=== PATIENT | female | born 1935 | race Two or more races ===

== ENCOUNTER 2016-12-31 11:51 | Inpatient (IN) | payer MEDICARE, BC ==
[2016-12-31] MEDS ORDERED: FUROSEMIDE 10 MG/ML 2 ML VIAL IV STA (12:30)
[2016-12-31] MEDS ORDERED: LABETALOL 5 MG/ML VIAL MDV IVP STA (13:01)
[2016-12-31 13:02] LABS: Basophils % (A) 0 %; CH 32.2; CHCM 34.8; Eosinophils % (A) 0 %; HDW 2.67; HGB 13.7 gm/dL (11.4-16.0); Luc # (Auto) 0.08; Luc % (Auto) 1; Lymphocytes # (A) 0.9 k/uL (1.0-4.8); Lymphocytes % (A) 8 %; MCH 31.1 pg (25.0-35.0); MCHC 33.5 g/dL (31.0-37.0); MCV 92.9 fL (80.0-100.0); Mean Platelet Volume 7.2; Monocytes # (A) 0.4 k/uL (0-1.0); Monocytes % (A) 3 %; Neutrophils # (A) 9.3 k/uL (1.3-7.7); Neutrophils % (A) 87 %; RBC 4.41 m/uL (3.80-5.40); RDW 13.7 % (11.5-15.5); WBC 10.7 k/uL (3.8-10.6); WBC (Perox) 10.51
[2016-12-31 13:13] LABS: Partial Thromboplastin Time 22.6 sec (22.0-30.0)
[2016-12-31 13:15] LABS: Calcium 9.6 mg/dL (8.4-10.2); Magnesium 1.9 mg/dL (1.6-2.3); Potassium 4.5 mmol/L (3.5-5.1); Total Bilirubin 0.8 mg/dL (0.2-1.3); Total Protein 6.8 g/dL (6.3-8.2)
[2016-12-31 13:23] LABS: Creatine Kinase 34 U/L (30-135)
--- NOTE | 2016-12-31 13:33 | XR ---
EXAMINATION TYPE: XR chest 2V DATE OF EXAM: 12/31/2016 COMPARISON: NONE HISTORY: Shortness of breath TECHNIQUE: Frontal and lateral views of the chest are obtained. FINDINGS: Scattered senescent parenchymal changes noted. Hyperinflation compatible with COPD. Increased density right infrahilar region may reflect developing infiltrate or atelectasis. Clinical correlation and follow-up is advised. Heart size is stable. Mediastinal structures are stable and grossly unremarkable. No evidence for hilar prominence. Degenerative changes dorsal spine. IMPRESSION: 1. Increased density right infrahilar region may reflect developing infiltrate or atelectasis. Clinic al correlation and follow-up is advised.
[2016-12-31 13:36] LABS: Creatine Kinase MB 0.3 ng/mL (0.0-2.4); Troponin I <0.012 ng/mL (0.000-0.034)
[2016-12-31] MEDS ORDERED: hydrALAZINE HCL 20 MG/ML 1 ML VIAL IVP STA ×2 (15:19)
--- NOTE | 2016-12-31 15:34 | ED ---
Arrhythmia/Palpitations HPI - General Chief Complaint: Arrhythmia/Palpitations Stated Complaint: ABdominal pain Time Seen by Provider: 12/31/16 12:18 Source: patient Mode of arrival: wheelchair Limitations: no limitations - History of Present Illness Initial Comments: This 81-year-old white female presents with her sister with a complaint of some palpitations. She relates that it woke her up at approximately 3 AM this morning. She states that it lasted approximately 15-20 minutes. She denies any actual chest pain or shortness of breath. She also has a history of high blood pressure but believe she went off of her high blood pressure medicines approximately 6 months ago as recommended by her physician. She currently does not take any medications for her blood pressure. She denies any cough or difficulty in breathing. She denies any leg pain or swelling. She denies any known previous cardiac conditions. She apparently had some type of cardiac testing her procedure but she cannot remember the exact test or procedure. Overall, it seems as though her medical history is difficult for her to remember. They relate that her niece was going to send something to our hospital in regard to her past medical history but I have not seen this information as of yet. - Related Data Home Medications Medication Instructions Recorded Confirmed Ascorbic Acid [Vitamin C] 1,000 mg PO DAILY 12/31/16 12/31/16 Aspirin EC [Ecotrin Low Dose] 81 mg PO DAILY 12/31/16 12/31/16 Cholecalciferol [Vitamin D3] 400 unit PO DAILY 12/31/16 12/31/16 [place]-3 Fatty Acids/Fish Oil [Fish 1 cap PO DAILY 12/31/16 12/31/16 Oil 1,000 mg Softgel] Allergies Allergy/AdvReac Type Severity Reaction Status Date / Time No Known Allergies Allergy Verified 12/31/16 12:44 Review of Systems ROS Statement: Those systems with pertinent positive or pertinent negative responses have been documented in the HPI. ROS Other: All systems not noted in ROS Statement are negative. Past Medical History Additional Past Medical History / Comment(s): cardiac problem History of Any Multi-Drug Resistant Organisms: None Reported Past Surgical History: Appendectomy Additional Past Surgical History / Comment(s): masectomy right, Past Psychological History: No Psychological Hx Reported Smoking Status: Former smoker Past Alcohol Use History: Rare Past Drug Use History: None Reported General Exam - General Exam Comments Initial Comments: GENERAL: The patient is well nourished and well hydrated. VITAL SIGNS: Heart rate, blood pressure, respiratory rate reviewed as recorded in nurse's notes. EYES: Pupils are round and reactive. Extraocular movements are intact. No conjunctival / lid redness or swelling. ENT: No external evidence of injury, swelling, or ecchymosis. Airway is patent. Throat is clear. NECK: Nontender. No swelling or evidence of injury. No subcutaneous emphysema. Trachea is midline. No thyroid mass. HEART: Regular rate and rhythm. Good peripheral pulses. LUNGS/CHEST: Breath sounds clear and equal bilaterally. No rales, rhonchi, or wheezes. No ecchymosis, subcutaneous emphysema, or tenderness. ABDOMEN: Abdomen soft without tenderness. No palpable masses or organomegaly. No peritoneal signs. No abdominal wall swelling or ecchymosis. EXTREMITIES: No extremity tenderness. Normal muscle tone and function. No thoracolumbar tenderness. NEUROLOGIC: Sensation is grossly intact. Cranial nerve exam reveals face is symmetrical, tongue is midline, speech is clear. SKIN: No abrasions or ecchymosis is noted. No induration or masses noted. PSYCHIATRIC: Alert and oriented. Appropriate behavior and judgment. Limitations: no limitations Course Vital Signs 12/31/16 12/31/16 12/31/16 12:00 13:13 14:35 Temperature 97.4 F L Pulse Rate 85 71 75 Respiratory 18 16 16 Rate Blood Pressure 178/79 236/96 215/90 O2 Sat by Pulse 98 100 100 Oximetry 12/31/16 15:30 Temperature Pulse Rate 11 L Respiratory 16 Rate Blood Pressure 169/77 O2 Sat by Pulse 100 Oximetry Medical Decision Making - Medical Decision Making The patient was seen and examined. All diagnostics were reviewed. The EKG shows a normal sinus rhythm at a rate of 81 with a right bundle-branch block. There is some moderate artifact noted. There is some associated ST-T wave changes in relation to the bundle branch block. The patient also has a left anterior fascicular block. The DE interval is 202, QRS duration is 138, and the QTc interval is 476. She is watched on a heart monitor and her blood pressure was severely elevated. She receives some labetalol intravenously and her blood pressure eventually increased to approximately 233/94. She receives some hydralazine and her blood pressure still elevated at 209/146. The palpitations seemed to have resolved at this point in time. The laboratory analysis is essentially within normal limits but the chest x-ray shows the possibility of a pneumonia versus atelectasis. Overall, it is felt as though she would benefit from admission to the hospital for treatment of the accelerated hypertension and the pneumonia. Case was discussed with Dr. Vargas and he is agreeable to admission. - Lab Data Result diagrams: 12/31/16 12:15 12/31/16 12:15 Lab Results 12/31/16 12/31/16 12/31/16 Range/Units 12:15 12:15 12:15 WBC 10.7 H (3.8-10.6) k/uL RBC 4.41 (3.80-5.40) m/uL Hgb 13.7 (11.4-16.0) gm/dL Hct 41.0 (34.0-46.0) % MCV 92.9 (80.0-100.0) fL MCH 31.1 (25.0-35.0) pg MCHC 33.5 (31.0-37.0) g/dL RDW 13.7 (11.5-15.5) % Plt Count 200 (150-450) k/uL Neutrophils % 87 % Lymphocytes % 8 % Monocytes % 3 % Eosinophils % 0 % Basophils % 0 % Neutrophils # 9.3 H (1.3-7.7) k/uL Lymphocytes # 0.9 L (1.0-4.8) k/uL Monocytes # 0.4 (0-1.0) k/uL Eosinophils # 0.0 (0-0.7) k/uL Basophils # 0.0 (0-0.2) k/uL PT (9.0-12.0) sec INR (<1.2) APTT (22.0-30.0) sec Sodium 140 (137-145) mmol/L Potassium 4.5 (3.5-5.1) mmol/L Chloride 108 H (98-107) mmol/L Carbon Dioxide 20 L (22-30) mmol/L Anion Gap 12 mmol/L BUN 19 H (7-17) mg/dL Creatinine 1.09 H (0.52-1.04) mg/dL Est GFR (MDRD) Af Amer 58 (>60 ml/min/1.73 sqM) Est GFR (MDRD) Non-Af 48 (>60 ml/min/1.73 sqM) Glucose 108 H (74-99) mg/dL Calcium 9.6 (8.4-10.2) mg/dL Magnesium 1.9 (1.6-2.3) mg/dL Total Bilirubin 0.8 (0.2-1.3) mg/dL AST 25 (14-36) U/L ALT 28 (9-52) U/L Alkaline Phosphatase 91 (38-126) U/L Total Creatine Kinase 34 (30-135) U/L CK-MB (CK-2) 0.3 (0.0-2.4) ng/mL CK-MB (CK-2) Rel Index 0.9 Troponin I <0.012 (0.000-0.034) ng/mL Total Protein 6.8 (6.3-8.2) g/dL Albumin 4.0 (3.5-5.0) g/dL Amylase 46 (30-110) U/L Lipase 57 (23-300) U/L TSH 6.510 H (0.465-4.680) mIU/L 12/31/16 Range/Units 12:15 WBC (3.8-10.6) k/uL RBC (3.80-5.40) m/uL Hgb (11.4-16.0) gm/dL Hct (34.0-46.0) % MCV (80.0-100.0) fL MCH (25.0-35.0) pg MCHC (31.0-37.0) g/dL RDW (11.5-15.5) % Plt Count (150-450) k/uL Neutrophils % % Lymphocytes % % Monocytes % % Eosinophils % % Basophils % % Neutrophils # (1.3-7.7) k/uL Lymphocytes # (1.0-4.8) k/uL Monocytes # (0-1.0) k/uL Eosinophils # (0-0.7) k/uL Basophils # (0-0.2) k/uL PT 10.0 (9.0-12.0) sec INR 1.0 (<1.2) APTT 22.6 (22.0-30.0) sec Sodium (137-145) mmol/L Potassium (3.5-5.1) mmol/L Chloride (98-107) mmol/L Carbon Dioxide (22-30) mmol/L Anion Gap mmol/L BUN (7-17) mg/dL Creatinine (0.52-1.04) mg/dL Est GFR (MDRD) Af Amer (>60 ml/min/1.73 sqM) Est GFR (MDRD) Non-Af (>60 ml/min/1.73 sqM) Glucose (74-99) mg/dL Calcium (8.4-10.2) mg/dL Magnesium (1.6-2.3) mg/dL Total Bilirubin (0.2-1.3) mg/dL AST (14-36) U/L ALT (9-52) U/L Alkaline Phosphatase (38-126) U/L Total Creatine Kinase (30-135) U/L CK-MB (CK-2) (0.0-2.4) ng/mL CK-MB (CK-2) Rel Index Troponin I (0.000-0.034) ng/mL Total Protein (6.3-8.2) g/dL Albumin (3.5-5.0) g/dL Amylase (30-110) U/L Lipase (23-300) U/L TSH (0.465-4.680) mIU/L Disposition Clinical Impression: Accelerated hypertension, Palpitations, Leukocytosis, Renal insufficiency, Pneumonia Disposition: ADMITTED IP TO THIS [facility] Condition: Fair Time of Disposition: 15:34 Decision Date: 12/31/16 Decision Time: 15:34
[2016-12-31] MEDS ORDERED: LEVOFLOXACIN 750MG-D5W PMX 750 MG in DEXTROSE/WATER 1 150ML.BAG IVPB STA (16:02)
[2016-12-31] MEDS ORDERED: ONDANSETRON 4 MG/2 ML VIAL IVP PRN (16:09)
[2016-12-31] MEDS ORDERED: NALOXONE 0.4 MG/ML 1 ML VIAL IV PRN (16:09)
[2016-12-31] MEDS ORDERED: hydrALAZINE HCL 20 MG/ML 1 ML VIAL IVP PRN (16:17)
[2016-12-31 19:31] LABS: Creatine Kinase 28 U/L (30-135)
[2016-12-31 19:44] LABS: Creatine Kinase MB 0.3 ng/mL (0.0-2.4); Troponin I <0.012 ng/mL (0.000-0.034)
[2017-01-01 00:17] LABS: Creatine Kinase 35 U/L (30-135)
[2017-01-01 00:30] LABS: Creatine Kinase MB 0.5 ng/mL (0.0-2.4); Troponin I <0.012 ng/mL (0.000-0.034)
[2017-01-01] MEDS: METOPROLOL TARTRATE 25 MG TAB PO SCH ×2 (07:23→08:10)
[2017-01-01] MEDS: CHOLECALCIFEROL 400 UNIT TAB PO SCH (08:10)
[2017-01-01] MEDS: ASPIRIN 81 MG CHEW PO SCH (08:10)
[2017-01-01] MEDS: ENOXAPARIN 40 MG/0.4 ML SYRINGE SQ SCH (08:10)
[2017-01-01] MEDS: ASCORBIC ACID 500 MG TAB PO SCH (08:10)
[2017-01-01] MEDS ORDERED: PANTOPRAZOLE 40 MG/10 ML VIAL IV SCH (09:00)
[2017-01-01] MEDS ORDERED: NON-FORMULARY DRUG (Omega-3 Fatty Acids/Fish Oil [Fish Oil 1,000 Mg Softgel] 1 CAP) PO SCH (09:00)
--- NOTE | 2017-01-01 09:50 | P.HPIM ---
History of Present Illness H&P Date: 01/01/17 Chief Complaint: Palpitation Ann Ross is an 81-year-old female patient of Dr. Lorraine Felipe who presented to [facility] with a chief complaint of palpitation that woke her up at night and lasted for about 20 minutes, she was evaluated in the emergency room and had evidence of hypertensive emergency with elevated blood pressure was a systolic above 200, she states that she used to take blood pressure medication but she stopped about 6 months ago she states that her primary care physician told her to stop taking blood pressure medication. She was evaluated in the emergency room she also had evidence of infiltrate on chest x-ray suggestive of pneumonia. She had evidence of hypothyroidism with elevated TSH she was admitted to telemetry floor for further evaluation and treatment she was started on IV antibiotic Levaquin. She was started on metoprolol in the emergency room. Past Medical History Past Medical History: Hypertension Additional Past Medical History / Comment(s): sarcodosis; former smoker History of Any Multi-Drug Resistant Organisms: None Reported Past Surgical History: Appendectomy, Heart Catheterization With Stent Additional Past Surgical History / Comment(s): masectomy right in ; heart cath with stent done in Dec and Mar Past Anesthesia/Blood Transfusion Reactions: No Reported Reaction Date of Last Stent Placement:: 2008 Past Psychological History: No Psychological Hx Reported Smoking Status: Former smoker Past Alcohol Use History: Rare Past Drug Use History: None Reported Medications and Allergies Home Medications Medication Instructions Recorded Confirmed Type Ascorbic Acid [Vitamin C] 1,000 mg PO DAILY 12/31/16 12/31/16 History Aspirin EC [Ecotrin Low Dose] 81 mg PO DAILY 12/31/16 12/31/16 History Cholecalciferol [Vitamin D3] 400 unit PO DAILY 12/31/16 12/31/16 History [place]-3 Fatty Acids/Fish Oil [Fish 1 cap PO DAILY 12/31/16 12/31/16 History Oil 1,000 mg Softgel] Allergies Allergy/AdvReac Type Severity Reaction Status Date / Time No Known Allergies Allergy Verified 12/31/16 12:44 Physical Exam Vitals: Vital Signs Temp Pulse Pulse Resp BP BP Pulse Ox 01/01/17 08:00 99.1 F 69 16 155/73 96 01/01/17 04:00 99.4 F 69 18 166/69 95 01/01/17 00:00 99.4 F 79 18 130/68 98 12/31/16 20:00 98.3 F 79 18 158/72 90 L 12/31/16 17:26 98 F 88 18 141/78 98 12/31/16 16:19 159/77 12/31/16 15:30 11 L 16 169/77 100 12/31/16 14:35 75 16 215/90 100 12/31/16 13:13 71 16 236/96 100 12/31/16 12:00 97.4 F L 85 18 178/79 98 Intake and Output 12/31/16 01/01/17 01/01/17 22:59 06:59 14:59 Intake Total 180 240 Balance 180 240 Intake: Oral 180 240 Other: # Voids 1 Weight 74.843 kg 81.2 kg In general patient is alert and oriented 3 in no apparent distress HEENT head normocephalic and atraumatic Neck is supple no JVD no goiter no lymphadenopathy Chest exam reveals a scattered crackles in both bases no wheezing Cardiac exam reveals regular heart sounds S1 and S2 no gallops no murmurs Abdomen is soft nontender no organomegaly with normal bowel sounds Extremity exam reveals no edema no cyanosis or clubbing Results CBC & Chem 7: 12/31/16 12:15 12/31/16 12:15 Labs: Abnormal Lab Results - Last 24 Hours (Table) 12/31/16 12/31/16 12/31/16 Range/Units 12:15 12:15 18:52 WBC 10.7 H (3.8-10.6) k/uL Neutrophils # 9.3 H (1.3-7.7) k/uL Lymphocytes # 0.9 L (1.0-4.8) k/uL Chloride 108 H (98-107) mmol/L Carbon Dioxide 20 L (22-30) mmol/L BUN 19 H (7-17) mg/dL Creatinine 1.09 H (0.52-1.04) mg/dL Glucose 108 H (74-99) mg/dL Total Creatine Kinase 28 L (30-135) U/L TSH 6.510 H (0.465-4.680) mIU/L Thrombosis Risk Factor Assmnt - Choose All That Apply Each Risk Factor Represents 3 Points: Age 75 years or older Thrombosis Risk Factor Assessment Total Risk Factor Score: 3 Thrombosis Risk Factor Assessment Level: Moderate Risk Assessment and Plan Plan: #1 episode of palpitation, patient was started on metoprolol in the emergency room will monitor on telemetry to rule out any cardiac arrhythmia, cardiology consultation was requested in the emergency room serial EKG and cardiac enzymes were ordered #2 hypertensive emergency, blood pressure in the emergency room 236/96 she was started on oral metoprolol she was also started on IV hydralazine will adjust blood pressure medication during this admission. #3 right infrahilar infiltrate, patient was started on IV Levaquin in the emergency room will recheck chest x-ray in a.m. #4 hypothyroidism TSH on presentation 6.51 Will add Synthroid 25 g once daily #5 for DVT prophylaxis patient was started on Lovenox 40 mg subcu once daily for GI prophylaxis patient was started on Pepcid Will follow during this admission for medical management continue was current antibiotic and current medication at this time will add Synthroid 25 g daily Will add lisinopril 5 mg daily and monitor progress.
[2017-01-01] MEDS ORDERED: LISINOPRIL 5 MG TAB PO SCH (10:00)
[2017-01-01] MEDS ORDERED: DOPamine DRIP 800 MG in DEXTROSE/WATER 1 500ML.BAG IV SCH (11:26)
[2017-01-01] MEDS: amLODIPine 5 MG TAB PO SCH (12:13)
--- NOTE | 2017-01-01 14:10 | P.CRDCN ---
History of Present Illness History of present illness: Elderly female who follows with Dr. Bowers admitted with symptoms of palpitations that woke her up at 3 AM in the morning and lasted for about 15-20 minutes. Denies chest discomfort denies shortness of breath. She has also been noted to have fever and white count is being treated with IV antibiotics and possibly has pneumonitis Review of systems: No fever chills or rigors, no cough, phlegm or expectoration , no nausea, vomiting or diarrhea, no hematuria, dysuria, no musculoskeletal complaints, no strokes or seizures, no skin lesions. Past history of hypertension she states she's been taking her medications but is unlikely that she has Medication list was reviewed ALLERGY list was reviewed This morning at about 10:30 in while she is lying in bed she had long episodes of paroxysmal AV block. Labs are reviewed electrolytes normal potassium and normal TSH 6.5, high cardiac enzymes normal Impression Paroxysmal AV block no reversible causes Hypertension Hypothyroidism Being treated for pneumonitis Stage III chronic kidney disease GFR 58, normal electrolytes Plan Permanent pacemaker implantation after her infection is treated, for prevention of syncope and injury on account of sudden severe bradycardia with long pauses secondary to paroxysmal AV block Amlodipine 5 mg daily for hypertension Past Medical History Past Medical History: Hypertension Additional Past Medical History / Comment(s): sarcodosis; former smoker History of Any Multi-Drug Resistant Organisms: None Reported Past Surgical History: Appendectomy, Heart Catheterization With Stent Additional Past Surgical History / Comment(s): masectomy right in ; heart cath with stent done in Dec and Mar Past Anesthesia/Blood Transfusion Reactions: No Reported Reaction Date of Last Stent Placement:: 2008 Past Psychological History: No Psychological Hx Reported Smoking Status: Former smoker Past Alcohol Use History: Rare Past Drug Use History: None Reported Medications and Allergies Home Medications Medication Instructions Recorded Confirmed Type Ascorbic Acid [Vitamin C] 1,000 mg PO DAILY 12/31/16 12/31/16 History Aspirin EC [Ecotrin Low Dose] 81 mg PO DAILY 12/31/16 12/31/16 History Cholecalciferol [Vitamin D3] 400 unit PO DAILY 12/31/16 12/31/16 History [place]-3 Fatty Acids/Fish Oil [Fish 1 cap PO DAILY 12/31/16 12/31/16 History Oil 1,000 mg Softgel] Allergies Allergy/AdvReac Type Severity Reaction Status Date / Time No Known Allergies Allergy Verified 12/31/16 12:44 Physical Exam Vitals: Vital Signs Temp Pulse Pulse Resp BP BP Pulse Ox 01/01/17 10:52 99.2 F 65 16 167/83 96 01/01/17 08:00 99.1 F 69 16 155/73 96 01/01/17 04:00 99.4 F 69 18 166/69 95 01/01/17 00:00 99.4 F 79 18 130/68 98 12/31/16 20:00 98.3 F 79 18 158/72 90 L 12/31/16 17:26 98 F 88 18 141/78 98 12/31/16 16:19 159/77 12/31/16 15:30 11 L 16 169/77 100 12/31/16 14:35 75 16 215/90 100 Intake and Output 12/31/16 01/01/17 01/01/17 22:59 06:59 14:59 Intake Total 180 240 Balance 180 240 Intake: Oral 180 240 Other: # Voids 1 Weight 74.843 kg 81.2 kg Results 12/31/16 12:15 12/31/16 12:15 Cardiac Enzymes 12/31/16 12/31/16 Range/Units 18:52 23:43 CK-MB (CK-2) 0.3 0.5 (0.0-2.4) ng/mL Troponin I <0.012 <0.012 (0.000-0.034) ng/mL Current Medications Generic Name Dose Route Start Last Admin Trade Name Freq PRN Reason Stop Dose Admin Acetaminophen 650 mg 12/31/16 16:09 Tylenol Tab PO Q6HR PRN Mild Pain or Fever > 100.5 Amlodipine Besylate 5 mg 01/01/17 11:30 01/01/17 12:13 Norvasc PO 5 mg DAILY [facility] Administration Ascorbic Acid 1,000 mg 01/01/17 12:00 01/01/17 08:10 Vitamin C PO 1,000 mg 1200 [facility] Administration Aspirin 81 mg 01/01/17 09:00 01/01/17 08:10 Aspirin PO 81 mg DAILY [facility] Administration Cholecalciferol 400 unit 01/01/17 12:00 01/01/17 08:10 Vitamin D3 PO 400 unit 1200 [facility] Administration Enoxaparin Sodium 40 mg 01/01/17 09:00 01/01/17 08:10 Lovenox SQ 40 mg DAILY [facility] Administration Hydralazine HCl 10 mg 12/31/16 16:17 Apresoline IVP Q4H PRN Hypertension Levofloxacin 750 mg/ IV 150 mls @ 100 mls/hr 01/02/17 17:00 Solution IVPB Q48H [facility] Dopamine HCl/Dextrose 800 mg/ 500 mls @ 6.09 mls/hr 01/01/17 11:26 01/01/17 12:04 IV Solution IV 01/01/17 19:00 2 mcg/kg/min .Q24H [facility]INA 6.09 mls/hr Protocol Administration 2 MCG/KG/MIN Levothyroxine Sodium 25 mcg 01/02/17 06:30 Synthroid PO DAILY@0630 [facility] Naloxone HCl 0.2 mg 12/31/16 16:09 Narcan IV Q2M PRN Opioid Reversal Ondansetron HCl 4 mg 12/31/16 16:09 Zofran IVP Q8HR PRN Nausea And Vomiting Pantoprazole Sodium 40 mg 01/02/17 07:30 Protonix PO AC-[id number] [facility] Intake and Output 12/31/16 01/01/17 01/01/17 22:59 06:59 14:59 Intake Total 180 240 Balance 180 240 Intake: Oral 180 240 Other: # Voids 1 Weight 74.843 kg 81.2 kg 12/31/16 12:15 12/31/16 12:15
[2017-01-02 06:22] LABS: Basophils # (A) 0.1 k/uL (0-0.2); Basophils % (A) 1 %; CHCM 34.8; Eosinophils % (A) 0 %; HCT 36.4 % (34.0-46.0); HDW 2.65; HGB 12.1 gm/dL (11.4-16.0); Luc % (Auto) 1; Lymphocytes % (A) 10 %; MCH 30.6 pg (25.0-35.0); MCHC 33.1 g/dL (31.0-37.0); MCV 92.4 fL (80.0-100.0); Mean Platelet Volume 7.1; Monocytes # (A) 0.7 k/uL (0-1.0); Monocytes % (A) 6 %; Neutrophils # (A) 8.6 k/uL (1.3-7.7); Neutrophils % (A) 82 %; RBC 3.94 m/uL (3.80-5.40); RDW 13.9 % (11.5-15.5); WBC 10.4 k/uL (3.8-10.6)
[2017-01-02 06:36] LABS: Potassium 4.1 mmol/L (3.5-5.1); Total Bilirubin 0.8 mg/dL (0.2-1.3); Total Protein 5.7 g/dL (6.3-8.2)
[2017-01-02] MEDS: LEVOTHYROXINE 25 MCG TAB PO SCH (07:01)
[2017-01-02] MEDS: PANTOPRAZOLE 40 MG TABLET PO SCH (07:01)
--- NOTE | 2017-01-02 07:20 | XR ---
EXAMINATION TYPE: XR chest 2V DATE OF EXAM: 01/02/2017 COMPARISON: 12/31/2016 HISTORY: Shortness of breath TECHNIQUE: Frontal and lateral views of the chest are obtained. FINDINGS: Scattered senescent parenchymal changes noted. Hyperinflation compatible with COPD. Stable right lower lobe infiltrate. Heart size is stable. Mediastinal structures are stable and grossly unremarkable. No evidence for hilar prominence. Degenerative changes dorsal spine. IMPRESSION: 1. Stable right lower lobe infiltrate.
[2017-01-02] MEDS: ASPIRIN 81 MG CHEW PO SCH (08:29)
[2017-01-02] MEDS: amLODIPine 5 MG TAB PO SCH (08:29)
[2017-01-02] MEDS: ENOXAPARIN 40 MG/0.4 ML SYRINGE SQ SCH (08:29)
--- NOTE | 2017-01-02 12:17 | P.PN ---
Progress Note - Text Impression Paroxysmal AV block Risk of syncope and significant injury Discussed with the patient She asked very appropriate and relevant questions regarding the pacemaker Detailed discussion with her power of rehabilitation therapy technician in [place], Cherry I explained the indication for permanent pacing benefits risks and does and don' ts and postop care. She was concerned about follow-up care mainly because the patient has not been coming back for her follow-up visits. I told her that I will arrange for the trimming caser to look into this so that she has tried as needed after one week and then after 3 months for pacemaker interrogation I will implant of pacemaker in about 48 hours
--- NOTE | 2017-01-02 14:01 | P.PN ---
Subjective Principal diagnosis: Palpitations This is an 81-year-old female who presented to the hospital initially with symptoms of palpitations. She was found to be very hypertensive on admission here. Patient also had evidence of infiltrate on her chest x-ray suggestive of pneumonia and is currently on antibiotics. Patient was seen in consultation by Dr. 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 He did have a lengthy discussion today with the patient as well as her power of calibration technician regarding the need for implantation of a permanent pacemaker once the infection clears. The risks and benefits of pacemaker implantation were explained to the patient and her power of calibration technician in detail. The plan is within the next 48 hours to proceed. Blood pressure today 155/70 with a heart rate in the 60s. Temperature 99.3. CBC normal, potassium 4.1, BUN 24, creatinine 1.6. Objective - Vital Signs Vital signs: Vital Signs Temp 99.3 F 01/02/17 03:39 Pulse 73 01/02/17 03:41 Resp 16 01/02/17 03:41 BP 157/70 01/02/17 03:39 Pulse Ox 96 01/02/17 03:39 Intake & Output 01/01/17 01/02/17 01/02/17 18:59 06:59 18:59 Intake Total 600 160 180 Output Total 1500 Balance -900 160 180 Weight 81.1 kg Intake: IV 160 0.9 160 Oral 600 180 Output: Urine 1500 Other: Voiding Method Toilet - Exam PHYSICAL EXAMINATION: HEENT: Head is atraumatic, normocephalic. Pupils equal, round. Neck is supple. There is no elevated jugular venous pressure. HEART EXAMINATION: Heart S1, S2 normal. No murmur or gallop heard. CHEST EXAMINATION: Lungs reveal crackles bilaterally. ABDOMEN: Soft, nontender. Bowel sounds are heard. No organomegaly noted. EXTREMITIES: 2+ peripheral pulses with no evidence of peripheral edema and no calf tenderness noted. NEUROLOGIC [patient is awake, alert and oriented -3.] . - Labs CBC & Chem 7: 01/02/17 05:47 01/02/17 05:47 Labs: Abnormal Lab Results - Last 24 Hours (Table) 01/02/17 01/02/17 Range/Units 05:47 05:47 Neutrophils # 8.6 H (1.3-7.7) k/uL Chloride 108 H (98-107) mmol/L Carbon Dioxide 20 L (22-30) mmol/L BUN 24 H (7-17) mg/dL Creatinine 1.65 H (0.52-1.04) mg/dL Total Protein 5.7 L (6.3-8.2) g/dL Albumin 3.0 L (3.5-5.0) g/dL Microbiology - Last 24 Hours (Table) 12/31/16 18:52 Blood Culture - Preliminary Blood No Growth after 24 hours Assessment and Plan (1) Hypothyroid Status: Acute (2) AV block Status: Acute (3) Accelerated hypertension Status: Acute (4) Leukocytosis Status: Acute (5) Palpitations Status: Acute (6) Pneumonia Status: Acute Plan: From cardiology's perspective, we'll recommend to continue the patient on her current medications. When she is stable from an infection perspective she will undergo implantation of a permanent pacemaker, currently planned for this is to proceed with in 48 hours. DNP note has been reviewed, I agree with a documented findings and plan of care. Patient was seen and examined.
[2017-01-02] MEDS: ASCORBIC ACID 500 MG TAB PO SCH (14:45)
[2017-01-02] MEDS: CHOLECALCIFEROL 400 UNIT TAB PO SCH (14:45)
--- NOTE | 2017-01-02 15:00 | P.PN ---
Subjective This is an 81-year-old female who presented to the hospital initially with symptoms of palpitations. She was found to be very hypertensive on admission here. Patient also had evidence of infiltrate on her chest x-ray suggestive of pneumonia and is currently on antibiotics. Patient was seen in consultation by Dr. 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 He did have a lengthy discussion today with the patient as well as her power of admitted attorneys regarding the need for implantation of a permanent pacemaker once the infection clears. The risks and benefits of pacemaker implantation were explained to the patient and her power of admitted attorneys in detail. The plan is within the next 48 hours to proceed. Blood pressure today 155/70 with a heart rate in the 60s. Temperature 99.3. CBC normal, potassium 4.1, BUN 24, creatinine 1.6. on 01/02/2017 patient was seen and examined she is alert and oriented in no distress, denies any pain or discomfort. Objective - Vital Signs Vital signs: Vital Signs Temp 99.3 F 01/02/17 03:39 Pulse 73 01/02/17 03:41 Resp 16 01/02/17 03:41 BP 157/70 01/02/17 03:39 Pulse Ox 96 01/02/17 03:39 Intake & Output 01/01/17 01/02/17 01/02/17 18:59 06:59 18:59 Intake Total 600 160 517 Output Total 1500 300 Balance -900 160 217 Weight 81.1 kg Intake: IV 160 0.9 160 Oral 600 517 Output: Urine 1500 300 Other: Voiding Method Toilet - Exam In general patient is alert and oriented 3 in no apparent distress HEENT head normocephalic and atraumatic Neck is supple no JVD no goiter no lymphadenopathy Chest exam reveals a scattered crackles in both bases no wheezing Cardiac exam reveals regular heart sounds S1 and S2 no gallops no murmurs Abdomen is soft nontender no organomegaly with normal bowel sounds Extremity exam reveals no edema no cyanosis or clubbing - Labs CBC & Chem 7: 01/02/17 05:47 01/02/17 05:47 Labs: Abnormal Lab Results - Last 24 Hours (Table) 01/02/17 01/02/17 Range/Units 05:47 05:47 Neutrophils # 8.6 H (1.3-7.7) k/uL Chloride 108 H (98-107) mmol/L Carbon Dioxide 20 L (22-30) mmol/L BUN 24 H (7-17) mg/dL Creatinine 1.65 H (0.52-1.04) mg/dL Total Protein 5.7 L (6.3-8.2) g/dL Albumin 3.0 L (3.5-5.0) g/dL Microbiology - Last 24 Hours (Table) 12/31/16 18:52 Blood Culture - Preliminary Blood No Growth after 24 hours Assessment and Plan Plan: #1 episode of palpitation, patient was started on metoprolol in the emergency room will monitor on telemetry to rule out any cardiac arrhythmia, cardiology consultation was requested in the emergency room serial EKG and cardiac enzymes were ordered #2 hypertensive emergency, blood pressure in the emergency room 236/96 she was started on oral metoprolol she was also started on IV hydralazine will adjust blood pressure medication during this admission. #3 right infrahilar infiltrate, patient was started on IV Levaquin in the emergency room will recheck chest x-ray in a.m. #4 hypothyroidism TSH on presentation 6.51 Will add Synthroid 25 g once daily #5 for DVT prophylaxis patient was started on Lovenox 40 mg subcu once daily for GI prophylaxis patient was started on Pepcid Will follow during this admission for medical management continue was current antibiotic and current medication at this time will add Synthroid 25 g daily Will add lisinopril 5 mg daily and monitor progress. plan per cardiology to proceed with pacemaker placement when stable.
[2017-01-02] MEDS: LEVOFLOXACIN 750MG-D5W PMX 750 MG in DEXTROSE/WATER 1 150ML.BAG IVPB SCH (17:22)
[2017-01-02] MEDS: ACETAMINOPHEN TAB 325 MG TAB PO PRN (20:30)
[2017-01-03 06:43] LABS: Basophils % (A) 0 %; CH 32.1; Eosinophils # (A) 0.1 k/uL (0-0.7); Eosinophils % (A) 1 %; HCT 33.8 % (34.0-46.0); HDW 2.65; HGB 11.2 gm/dL (11.4-16.0); Luc # (Auto) 0.16; Luc % (Auto) 2; Lymphocytes # (A) 0.9 k/uL (1.0-4.8); Lymphocytes % (A) 12 %; MCH 30.5 pg (25.0-35.0); MCHC 33.1 g/dL (31.0-37.0); MCV 92.3 fL (80.0-100.0); Mean Platelet Volume 7.3; Monocytes # (A) 0.6 k/uL (0-1.0); Monocytes % (A) 8 %; Neutrophils # (A) 6.3 k/uL (1.3-7.7); Neutrophils % (A) 78 %; RBC 3.67 m/uL (3.80-5.40); RDW 13.5 % (11.5-15.5); WBC 8.1 k/uL (3.8-10.6)
[2017-01-03] MEDS: LEVOTHYROXINE 25 MCG TAB PO SCH (06:44)
[2017-01-03] MEDS: PANTOPRAZOLE 40 MG TABLET PO SCH (06:44)
[2017-01-03 06:58] LABS: Calcium 8.9 mg/dL (8.4-10.2); Potassium 4.1 mmol/L (3.5-5.1); Total Bilirubin 0.7 mg/dL (0.2-1.3); Total Protein 5.2 g/dL (6.3-8.2)
[2017-01-03] MEDS: ENOXAPARIN 30 MG/0.3 ML SYRINGE SQ SCH (08:53)
[2017-01-03] MEDS: ASPIRIN 81 MG CHEW PO SCH (08:54)
[2017-01-03] MEDS: amLODIPine 5 MG TAB PO SCH (08:54)
[2017-01-03] MEDS: CHOLECALCIFEROL 400 UNIT TAB PO SCH (12:11)
[2017-01-03] MEDS: ASCORBIC ACID 500 MG TAB PO SCH (12:11)
--- NOTE | 2017-01-03 12:14 | P.PN ---
Subjective This is an 81-year-old female who presented to the hospital initially with symptoms of palpitations. She was found to be very hypertensive on admission here. Patient also had evidence of infiltrate on her chest x-ray suggestive of pneumonia and is currently on antibiotics. Patient was seen in consultation by Dr. 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 He did have a lengthy discussion today with the patient as well as her power of assistant attorney general regarding the need for implantation of a permanent pacemaker once the infection clears. The risks and benefits of pacemaker implantation were explained to the patient and her power of assistant attorney general in detail. The plan is within the next 48 hours to proceed. 01/03/2017 patient reports improvement in her cough. Patient slightly confused. Stating that she does not want pacemaker at this time. Awaiting cardiology evaluation. Patient does have a POA. Patient lying in bed comfortably no distress. Reports having bowel movements and no difficulty urinating. Reports from working with physical therapy in the hallway Objective - Vital Signs Vital signs: Vital Signs Temp 97.7 F 01/03/17 11:24 Pulse 74 01/03/17 11:24 Resp 20 01/03/17 11:24 BP 115/62 01/03/17 11:24 Pulse Ox 98 01/03/17 11:24 Intake & Output 01/02/17 01/03/17 01/03/17 18:59 06:59 18:59 Intake Total 977 900 Output Total 1800 Balance -823 900 Weight 81.2 kg Intake: IV 900 0.9 @ 100mls/hr 900 Intake, IV Titration 100 Amount Levofloxacin 750Mg-D5w 100 Pmx 750 mg In Dextrose/ Water 1 150ml.bag @ 100 mls/hr IVPB Q48H [facility] Rx#: [id number] Oral 877 Output: Urine 1800 Other: Voiding Method Toilet Toilet Toilet # Voids 1 1 - Exam Head normocephalic Neck supple Lungs clear to auscultation bilaterally no wheezing or crackles Heart regular rate and rhythm S1-S2, no rub or gallop Abdomen is soft nontender nondistended positive bowel sounds no hepatosplenomegaly Extremities no edema Neuro alert and orientated to 3 - Labs CBC & Chem 7: 01/03/17 06:08 01/03/17 06:08 Labs: Abnormal Lab Results - Last 24 Hours (Table) 01/03/17 01/03/17 Range/Units 06:08 06:08 RBC 3.67 L (3.80-5.40) m/uL Hgb 11.2 L (11.4-16.0) gm/dL Hct 33.8 L (34.0-46.0) % Lymphocytes # 0.9 L (1.0-4.8) k/uL Chloride 109 H (98-107) mmol/L Carbon Dioxide 20 L (22-30) mmol/L BUN 31 H (7-17) mg/dL Creatinine 1.80 H (0.52-1.04) mg/dL Total Protein 5.2 L (6.3-8.2) g/dL Albumin 2.7 L (3.5-5.0) g/dL Microbiology - Last 24 Hours (Table) 12/31/16 18:52 Blood Culture - Preliminary Blood No Growth after 48 hours Assessment and Plan Plan: #1 AV block. Cardiology is planning on a permanent pacemaker possibly within the next 48 hours. #2 hypertensive emergency, blood pressure in the emergency room 236/96 she was started on oral metoprolol she was also started on IV hydralazine will adjust blood pressure medication during this admission. With simple added during this admission #3 pneumonia continue Levaquin #4 hypothyroidism TSH on presentation 6.51 Will add Synthroid 25 g once daily #5 for DVT prophylaxis patient was started on Lovenox 40 mg subcu once daily for GI prophylaxis patient was started on Pepcid 6. Acute any injury with chronic kidney disease, stage III: We'll give normal saline at 50 mL an hour for 6 hours. And repeat labs in a.m. I performed an examination of the patient and discussed their management with the physician Sales Supervisor. I have reviewed the Physician Sales Supervisor's notes and agree with the documented findings and plan of care
[2017-01-03] MEDS ORDERED: SODIUM CHLORIDE 0.9% 1,000 ML IV SCH (12:15)
--- NOTE | 2017-01-03 14:31 | P.PN ---
Progress Note - Text Patient examined labs reviewed neutrophil count improved currently on IV antibiotics plan single chamber permanent pacemaker implantation tomorrow he did he see full dictation by nurse practitioner
--- NOTE | 2017-01-03 15:34 | P.PN ---
Subjective Principal diagnosis: Palpitations This is an 81-year-old female who presented to the hospital initially with symptoms of palpitations. She was found to be very hypertensive on admission here. Patient also had evidence of infiltrate on her chest x-ray suggestive of pneumonia and is currently on antibiotics. Patient was seen in consultation by Dr. 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 He did have a lengthy discussion with the patient as well as her power of patent attorney regarding the need for implantation of a permanent pacemaker once the infection clears. The risks and benefits of pacemaker implantation were explained to the patient and her power of patent attorney in detail. The plan is within the next 24 hours to proceed. Blood pressure today 146/69 with a heart rate in the 70s. Temperature 98.3. WBC 8.1, potassium 4.1, BUN 31, creatinine 1.8. Objective - Vital Signs Vital signs: Vital Signs Temp 97.7 F 01/03/17 11:24 Pulse 74 01/03/17 11:24 Resp 20 01/03/17 11:24 BP 115/62 01/03/17 11:24 Pulse Ox 98 01/03/17 11:24 Intake & Output 01/02/17 01/03/17 01/03/17 18:59 06:59 18:59 Intake Total 977 900 Output Total 1800 Balance -823 900 Weight 81.2 kg Intake: IV 900 0.9 @ 100mls/hr 900 Intake, IV Titration 100 Amount Levofloxacin 750Mg-D5w 100 Pmx 750 mg In Dextrose/ Water 1 150ml.bag @ 100 mls/hr IVPB Q48H [facility] Rx#: [id number] Oral 877 Output: Urine 1800 Other: Voiding Method Toilet Toilet Toilet # Voids 1 1 - Exam PHYSICAL EXAMINATION: HEENT: Head is atraumatic, normocephalic. Pupils equal, round. Neck is supple. There is no elevated jugular venous pressure. HEART EXAMINATION: Heart sounds regular, S1 and S2 normal. No murmur or gallop heard. CHEST EXAMINATION: Lungs are clear to auscultation and precussion. No chest wall tenderness is noted on palpation or with deep breathing. ABDOMEN: Soft, nontender. Bowel sounds are heard. No organomegaly noted. EXTREMITIES: 2+ peripheral pulses with no evidence of peripheral edema and no calf tenderness noted. NEUROLOGIC patient is awake, alert and oriented x3. . - Labs CBC & Chem 7: 01/03/17 06:08 01/03/17 06:08 Labs: Abnormal Lab Results - Last 24 Hours (Table) 01/03/17 01/03/17 Range/Units 06:08 06:08 RBC 3.67 L (3.80-5.40) m/uL Hgb 11.2 L (11.4-16.0) gm/dL Hct 33.8 L (34.0-46.0) % Lymphocytes # 0.9 L (1.0-4.8) k/uL Chloride 109 H (98-107) mmol/L Carbon Dioxide 20 L (22-30) mmol/L BUN 31 H (7-17) mg/dL Creatinine 1.80 H (0.52-1.04) mg/dL Total Protein 5.2 L (6.3-8.2) g/dL Albumin 2.7 L (3.5-5.0) g/dL Microbiology - Last 24 Hours (Table) 12/31/16 18:52 Blood Culture - Preliminary Blood No Growth after 48 hours Assessment and Plan Plan: Assessment and plan #1 hypothyroidism #2 AV block #3 hypertension #4 leukocytosis #5 palpitations #6 pneumonia From cardiology's perspective, we will continue the patient on her current medications. If patient remains afebrile with a normal white blood cell count we will plan for pacemaker implantation tomorrow morning. Patient may have a early breakfast, nothing by mouth after breakfast. STATION WORKER note has been reviewed, I agree with a documented findings and plan of care. Patient was seen and examined.
[2017-01-03] MEDS: SODIUM CHLORIDE 0.9% 1,000 ML IV SCH (21:16)
[2017-01-04] MEDS: PANTOPRAZOLE 40 MG TABLET PO SCH (06:06)
[2017-01-04] MEDS: ASPIRIN 81 MG CHEW PO SCH (06:06)
[2017-01-04] MEDS: ENOXAPARIN 30 MG/0.3 ML SYRINGE SQ SCH (06:06)
[2017-01-04] MEDS: amLODIPine 5 MG TAB PO SCH (06:06)
[2017-01-04] MEDS: LEVOTHYROXINE 25 MCG TAB PO SCH (06:06)
[2017-01-04 06:21] LABS: Basophils % (A) 0 %; CH 32.1; CHCM 35.1; Eosinophils # (A) 0.1 k/uL (0-0.7); Eosinophils % (A) 1 %; HCT 35.7 % (34.0-46.0); HDW 2.75; HGB 11.8 gm/dL (11.4-16.0); Luc # (Auto) 0.13; Luc % (Auto) 2; Lymphocytes # (A) 1.2 k/uL (1.0-4.8); Lymphocytes % (A) 14 %; MCH 30.4 pg (25.0-35.0); MCV 91.9 fL (80.0-100.0); Mean Platelet Volume 7.9; Monocytes # (A) 0.7 k/uL (0-1.0); Monocytes % (A) 8 %; Neutrophils # (A) 6.9 k/uL (1.3-7.7); Neutrophils % (A) 76 %; RBC 3.89 m/uL (3.80-5.40); RDW 13.7 % (11.5-15.5); WBC 9.1 k/uL (3.8-10.6); WBC (Perox) 8.91
[2017-01-04 06:54] LABS: Calcium 9.3 mg/dL (8.4-10.2); Total Bilirubin 0.8 mg/dL (0.2-1.3); Total Protein 5.8 g/dL (6.3-8.2)
[2017-01-04 07:04] LABS: Potassium 4.7 mmol/L (3.5-5.1)
--- NOTE | 2017-01-04 10:06 | P.PN ---
Subjective This is an 81-year-old female who presented to the hospital initially with symptoms of palpitations. She was found to be very hypertensive on admission here. Patient also had evidence of infiltrate on her chest x-ray suggestive of pneumonia and is currently on antibiotics. Patient was seen in consultation by Dr. 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 He did have a lengthy discussion today with the patient as well as her power of business attorney regarding the need for implantation of a permanent pacemaker once the infection clears. The risks and benefits of pacemaker implantation were explained to the patient and her power of business attorney in detail. The plan is within the next 48 hours to proceed. Blood pressure today 155/70 with a heart rate in the 60s. Temperature 99.3. CBC normal, potassium 4.1, BUN 24, creatinine 1.6. on 01/02/2017 patient was seen and examined she is alert and oriented in no distress, denies any pain or discomfort. On 01/03/2017 patient is alert and oriented in no apparent distress she has occasional cough otherwise no complaints she denies any chest pain or shortness of breath. Medication and labs were reviewed patient is scheduled for pacemaker placement today. Objective - Vital Signs Vital signs: Vital Signs Temp 97.2 F L 01/04/17 03:51 Pulse 79 01/04/17 03:51 Resp 16 01/04/17 08:00 BP 153/65 01/04/17 03:51 Pulse Ox 98 01/04/17 03:51 Intake & Output 01/03/17 01/04/17 01/04/17 18:59 06:59 18:59 Intake Total 80 Balance 80 Weight 81 kg Intake: Intake, IV Titration 80 Amount Sodium Chloride 0.9% 1, 80 000 ml @ 20 mls/hr IV . Q24H [facility] Rx#:[id number] Other: Voiding Method Toilet Toilet # Voids 1 1 # Bowel Movements 1 - Exam In general patient is alert and oriented 3 in no apparent distress HEENT head normocephalic and atraumatic Neck is supple no JVD no goiter no lymphadenopathy Chest exam reveals a scattered crackles in both bases no wheezing Cardiac exam reveals regular heart sounds S1 and S2 no gallops no murmurs Abdomen is soft nontender no organomegaly with normal bowel sounds Extremity exam reveals no edema no cyanosis or clubbing - Labs CBC & Chem 7: 01/04/17 05:32 01/04/17 05:32 Labs: Abnormal Lab Results - Last 24 Hours (Table) 01/04/17 Range/Units 05:32 Chloride 109 H (98-107) mmol/L Carbon Dioxide 19 L (22-30) mmol/L BUN 34 H (7-17) mg/dL Creatinine 1.80 H (0.52-1.04) mg/dL Total Protein 5.8 L (6.3-8.2) g/dL Albumin 3.1 L (3.5-5.0) g/dL Microbiology - Last 24 Hours (Table) 12/31/16 18:52 Blood Culture - Preliminary Blood No Growth after 72 hours Assessment and Plan Plan: #1 episode of palpitation, patient was started on metoprolol in the emergency room will monitor on telemetry to rule out any cardiac arrhythmia, cardiology consultation was requested in the emergency room serial EKG and cardiac enzymes were ordered, Patient had evidence of paroxysmal AV block, plan is for pacemaker placement today. #2 hypertensive emergency, blood pressure in the emergency room 236/96 she was started on oral metoprolol, then switched to Amlodipine. she was also started on IV hydralazine will adjust blood pressure medication during this admission. #3 right infrahilar infiltrate, patient was started on IV Levaquin in the emergency room will recheck chest x-ray in a.m. #4 hypothyroidism TSH on presentation 6.51 Will add Synthroid 25 g once daily #5 for DVT prophylaxis patient was started on Lovenox 40 mg subcu once daily for GI prophylaxis patient was started on Pepcid Will follow during this admission for medical management continue was current antibiotic and current medication at this time will add Synthroid 25 g daily Will add lisinopril 5 mg daily and monitor progress. plan per cardiology to proceed with pacemaker placement when stable.
[2017-01-04] MEDS ORDERED: IV FLUID CONTINUATION 1,000 ML IV ONE (13:39)
[2017-01-04] MEDS ORDERED: MIDAZOLAM 2 MG/2 ML VIAL ONE (14:14)
[2017-01-04] MEDS ORDERED: ceFAZolin 2 GM in SODIUM CHLORIDE 0.9% 100 ML IVPB ONE (14:15)
[2017-01-04] MEDS ORDERED: ceFAZolin 1,000 MG in SODIUM CHLORIDE 0.9% IRRIGATIO 250 ML IRRIGATION ONE (14:15)
[2017-01-04] MEDS ORDERED: IODIXANOL 320 MG/ML 100 ML IV ONE (14:17)
[2017-01-04] MEDS ORDERED: MIDAZOLAM 2 MG/2 ML VIAL IV ONE (14:27)
[2017-01-04] MEDS ORDERED: LIDOCAINE 1% INJ 10MG/ML (20 ML MDV) SQ ONE ×2 (14:43→14:46)
[2017-01-04] MEDS ORDERED: ACETAMINOPHEN TAB 325 MG TAB PO PRN (15:22)
[2017-01-04] MEDS ORDERED: ACETAMINOPHEN IV (For NPO) 1,000 MG in EMPTY BAG 1 BAG IVPB ONE (15:22)
--- NOTE | 2017-01-04 15:28 | P.PCN ---
Preoperative Diagnosis: Patient underwent EP procedure, single-chamber pacemaker implant, on 01/04/2017 , under conscious sedation/moderate sedation, monitoring of the level of consciousness and physiologic parameters including but not limited to vital signs and oxygenation. Patient tolerated the procedure well without any acute complications. Start time: 1440 Stop time: 1510 Postoperative Diagnosis: Procedure(s) Performed: Implants: Indications for Procedure: Operative Findings: Description of Procedure:
[2017-01-04] MEDS: ASCORBIC ACID 500 MG TAB PO SCH (17:32)
[2017-01-04] MEDS: CHOLECALCIFEROL 400 UNIT TAB PO SCH (17:32)
[2017-01-04] MEDS: LEVOFLOXACIN 750MG-D5W PMX 750 MG in DEXTROSE/WATER 1 150ML.BAG IVPB SCH (17:33)
[2017-01-04] MEDS: SODIUM CHLORIDE 0.9% 1,000 ML IV SCH (18:58)
[2017-01-04] MEDS: ceFAZolin 2 GM in SODIUM CHLORIDE 0.9% 100 ML IVPB SCH (19:37)
--- NOTE | 2017-01-04 20:15 | PCN ---
81-year-old female who was admitted with an infection, was treated with IV antibiotics. She was complaining of palpitations when she would rest and on telemetry very long episodes of pauses secondary to paroxysmal AV block were noted. So far the patient has not had any injury. After completion of IV antibiotics and control of infection and normalization of white count and the neutrophil shift, she was brought into the EP lab for a single chamber pacemaker implant. The patient was brought to the EP lab in a fasting state. Written informed consent was obtained prior to the procedure. The left shoulder area was prepped and draped as per protocol. 1% lidocaine was used for local anesthesia. A 4 cm incision was made parallel to the deltopectoral groove, about 1.5 cm medial to it. The incision was carried down to the level of the pectoralis muscle. Subfascial pocket was made. Hemostasis was assured. The left axillary vein was accessed at a single point under fluoroscopy and via an appropriately sized introducer sheath, lead was positioned in the right ventricle and positioned in the apex. This was a passive lead [employer]Send MRI bipolar, 29 cm, model #7732, serial #[id number]. The R waves were 12 mV, pacing threshold 0.5 volts at 0.4 milliseconds, pacing impedance of 894 ohms. ( ) test negative. This was secured to the underlying pectoralis fascia using two nonabsorbable sutures. Pocket was irrigated with antibiotic solution and was connected to the generator PeriphaGenentio MRI, model #L110, serial #[id number]. This was placed in the subfascial pocket. The wound was closed in three layers and dressed per protocol. RESULTS: Successful single chamber implant for intermittent paroxysmal AV block with sudden and very severe bradycardia with very long pauses for syncope and injury prevention. PLAN: IV antibiotics and likely discharge home in the next 24-48 hours. [facility]
[2017-01-05] MEDS: ACETAMINOPHEN TAB 325 MG TAB PO PRN (00:10)
[2017-01-05] MEDS: ceFAZolin 2 GM in SODIUM CHLORIDE 0.9% 100 ML IVPB SCH ×3 (02:16→14:00)
[2017-01-05 06:15] LABS: Basophils % (A) 0 %; CH 31.8; CHCM 34.9; Eosinophils # (A) 0.1 k/uL (0-0.7); Eosinophils % (A) 1 %; HCT 34.2 % (34.0-46.0); HDW 2.79; HGB 11.5 gm/dL (11.4-16.0); Luc # (Auto) 0.14; Luc % (Auto) 2; Lymphocytes # (A) 0.8 k/uL (1.0-4.8); Lymphocytes % (A) 10 %; MCH 30.7 pg (25.0-35.0); MCHC 33.6 g/dL (31.0-37.0); MCV 91.6 fL (80.0-100.0); Mean Platelet Volume 7.4; Monocytes # (A) 0.6 k/uL (0-1.0); Monocytes % (A) 7 %; Neutrophils # (A) 6.6 k/uL (1.3-7.7); Neutrophils % (A) 80 %; RBC 3.73 m/uL (3.80-5.40); RDW 13.2 % (11.5-15.5); WBC 8.2 k/uL (3.8-10.6); WBC (Perox) 8.35
[2017-01-05] MEDS: PANTOPRAZOLE 40 MG TABLET PO SCH (06:22)
[2017-01-05] MEDS: LEVOTHYROXINE 25 MCG TAB PO SCH (06:22)
[2017-01-05 06:31] LABS: Total Bilirubin 0.3 mg/dL (0.2-1.3); Total Protein 5.4 g/dL (6.3-8.2)
--- NOTE | 2017-01-05 07:18 | XR ---
EXAMINATION TYPE: XR chest 2V DATE OF EXAM: 01/05/2017 COMPARISON: 01/02/2017 TECHNIQUE: PA and lateral views submitted. HISTORY: Lead placement check FINDINGS: No pneumothorax. Degenerative change the spine. Surgical clips overlying the right axilla. Cardiac de vice stable. There is subsegmental consolidation in the right lung base medially which is stable previous. COPD noted. IMPRESSION: 1. No acute process. Persistent consolidation right hilar and lower lobe. Differential includes pneum onia or mass. 2. Correlate for COPD.
[2017-01-05] MEDS: amLODIPine 5 MG TAB PO SCH (07:58)
[2017-01-05] MEDS: ASPIRIN 81 MG CHEW PO SCH (07:58)
[2017-01-05] MEDS: ENOXAPARIN 30 MG/0.3 ML SYRINGE SQ SCH (07:58)
[2017-01-05] MEDS: ASCORBIC ACID 500 MG TAB PO SCH (11:23)
[2017-01-05] MEDS: CHOLECALCIFEROL 400 UNIT TAB PO SCH (11:24)
--- NOTE | 2017-01-05 11:47 | P.PN ---
Subjective Patient is doing well. She is lying flat in bed. No shortness of breath no dizziness she denies any chest discomfort no pain around the pacemaker site is no hematoma no swelling minimal bruising noted On examination her pulse rate is in the 70s respirations are normal blood pressure 160/96 millimeter his mercury, repeat blood pressure 111/66 millimeters of mercury Normal heart sounds normal S1 normal S2 no murmurs or gallops Breath sounds are reduced bilaterally due to poor respiratory effort but there are no rhonchi no crackles Abdomen is soft nontender no masses 70s is warm no edema Pacemaker site is healing well no hematoma Impression Paroxysmal AV block with sudden severe bradycardia/pauses Hypertension Status post backup permanent pacemaker, interrogated this morning and within normal limits, perioperative IV antibiotics complete Lead in stable position no pneumothorax Plan Continue antihypertensive therapy Discharge planning and decision per PCP/internal medicine Objective - Vital Signs Vital signs: Vital Signs Temp 97.6 F 01/04/17 23:23 Pulse 75 01/05/17 08:00 Resp 18 01/05/17 08:00 BP 160/96 01/05/17 08:00 Pulse Ox 95 01/05/17 08:00 Intake & Output 01/04/17 01/05/17 01/05/17 18:59 06:59 18:59 Intake Total 720 720 Balance 720 720 Weight 124.3 kg Intake: IV 150 Intake, IV Titration 150 180 Amount Levofloxacin 750Mg-D5w 150 Pmx 750 mg In Dextrose/ Water 1 150ml.bag @ 100 mls/hr IVPB Q48H [facility] Rx#: [id number] Sodium Chloride 0.9% 1, 80 000 ml @ 20 mls/hr IV . Q24H [facility] Rx#:[id number] ceFAZolin 2 gm In Sodium 100 Chloride 0.9% 100 ml @ 100 mls/hr IVPB Q6H [facility] Rx#:[id number] Oral 420 540 Other: Voiding Method Toilet Toilet Toilet # Voids 1 1 2 - Labs CBC & Chem 7: 01/05/17 05:27 01/05/17 05:27 Labs: Abnormal Lab Results - Last 24 Hours (Table) 01/05/17 01/05/17 Range/Units 05:27 05:27 RBC 3.73 L (3.80-5.40) m/uL Lymphocytes # 0.8 L (1.0-4.8) k/uL Chloride 110 H (98-107) mmol/L Carbon Dioxide 18 L (22-30) mmol/L BUN 34 H (7-17) mg/dL Creatinine 1.80 H (0.52-1.04) mg/dL Total Protein 5.4 L (6.3-8.2) g/dL Albumin 2.8 L (3.5-5.0) g/dL Microbiology - Last 24 Hours (Table) 12/31/16 18:52 Blood Culture - Preliminary Blood No Growth after 96 hours
--- NOTE | 2017-01-05 13:03 | P.PN ---
Subjective This is an 81-year-old female who presented to the hospital initially with symptoms of palpitations. She was found to be very hypertensive on admission here. Patient also had evidence of infiltrate on her chest x-ray suggestive of pneumonia and is currently on antibiotics. Patient was seen in consultation by Dr. 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 He did have a lengthy discussion today with the patient as well as her power of trade mark attorney regarding the need for implantation of a permanent pacemaker once the infection clears. The risks and benefits of pacemaker implantation were explained to the patient and her power of trade mark attorney in detail. The plan is within the next 48 hours to proceed. Blood pressure today 155/70 with a heart rate in the 60s. Temperature 99.3. CBC normal, potassium 4.1, BUN 24, creatinine 1.6. on 01/02/2017 patient was seen and examined she is alert and oriented in no distress, denies any pain or discomfort. On 01/03/2017 patient is alert and oriented in no apparent distress she has occasional cough otherwise no complaints she denies any chest pain or shortness of breath. Medication and labs were reviewed patient is scheduled for pacemaker placement today. On 01/05/2017 patient doing well in no apparent distress, pacemaker placed, no complications, CXR still showing infiltrate, now radiologist raising possibility of lung mass, will obtain CT scan of the chest and consult pulmonary Objective - Vital Signs Vital signs: Vital Signs Temp 97.6 F 01/04/17 23:23 Pulse 76 01/05/17 11:44 Resp 18 01/05/17 11:44 BP 111/66 01/05/17 11:44 Pulse Ox 95 01/05/17 11:44 Intake & Output 01/04/17 01/05/17 01/05/17 18:59 06:59 18:59 Intake Total 720 720 Balance 720 720 Weight 124.3 kg Intake: IV 150 Intake, IV Titration 150 180 Amount Levofloxacin 750Mg-D5w 150 Pmx 750 mg In Dextrose/ Water 1 150ml.bag @ 100 mls/hr IVPB Q48H [facility] Rx#: [id number] Sodium Chloride 0.9% 1, 80 000 ml @ 20 mls/hr IV . Q24H [facility] Rx#:[id number] ceFAZolin 2 gm In Sodium 100 Chloride 0.9% 100 ml @ 100 mls/hr IVPB Q6H [facility] Rx#:[id number] Oral 420 540 Other: Voiding Method Toilet Toilet Toilet # Voids 1 1 2 - Exam In general patient is alert and oriented 3 in no apparent distress HEENT head normocephalic and atraumatic Neck is supple no JVD no goiter no lymphadenopathy Chest exam reveals a scattered crackles in both bases no wheezing Cardiac exam reveals regular heart sounds S1 and S2 no gallops no murmurs Abdomen is soft nontender no organomegaly with normal bowel sounds Extremity exam reveals no edema no cyanosis or clubbing - Labs CBC & Chem 7: 01/05/17 05:27 01/05/17 05:27 Labs: Abnormal Lab Results - Last 24 Hours (Table) 01/05/17 01/05/17 Range/Units 05:27 05:27 RBC 3.73 L (3.80-5.40) m/uL Lymphocytes # 0.8 L (1.0-4.8) k/uL Chloride 110 H (98-107) mmol/L Carbon Dioxide 18 L (22-30) mmol/L BUN 34 H (7-17) mg/dL Creatinine 1.80 H (0.52-1.04) mg/dL Total Protein 5.4 L (6.3-8.2) g/dL Albumin 2.8 L (3.5-5.0) g/dL Microbiology - Last 24 Hours (Table) 12/31/16 18:52 Blood Culture - Preliminary Blood No Growth after 96 hours Assessment and Plan Plan: #1 episode of palpitation, patient was started on metoprolol in the emergency room will monitor on telemetry to rule out any cardiac arrhythmia, cardiology consultation was requested in the emergency room serial EKG and cardiac enzymes were ordered, Patient had evidence of paroxysmal AV block, plan is for pacemaker placement today. #2 hypertensive emergency, blood pressure in the emergency room 236/96 she was started on oral metoprolol, then switched to Amlodipine. she was also started on IV hydralazine will adjust blood pressure medication during this admission. #3 right infrahilar infiltrate, patient was started on IV Levaquin in ER no improvement on CXR, now radiologist raising the possibility of lung mass, will obtain CT scan of the chest without contrast (Cr 1.8) and consult pulmonary. #4 hypothyroidism TSH on presentation 6.51 Will add Synthroid 25 g once daily #5 for DVT prophylaxis patient was started on Lovenox 40 mg subcu once daily for GI prophylaxis patient was started on Pepcid Will follow during this admission for medical management continue was current antibiotic and current medication at this time will add Synthroid 25 g daily Will add lisinopril 5 mg daily and monitor progress. plan per cardiology to proceed with pacemaker placement when stable.
--- NOTE | 2017-01-05 14:25 | CT ---
EXAMINATION TYPE: CT chest wo con DATE OF EXAM: 01/05/2017 COMPARISON: NONE HISTORY: Abnormal CXR CT DLP: 338.4 mGycm. Automated Exposure Control for Dose Reduction was Utilized. TECHNIQUE: CT scan of the thorax is performed without IV contrast. FINDINGS: LUNGS: 5 mm right upper lobe pulmonary nodule seen on series 4 image 11. Focal consolidation within t he posterior basilar segment of the right lower lobe is low-density and contains air bronchograms, robbins spicious for focal pneumonia with atelectasis considered less likely. No elevation of the right hemid iaphragm is seen to correspond to right lower lobe atelectasis. The remainder the lungs are clear. Nu merous calcified hilar granulomas are seen as well as innumerable left breast calcifications and righ t mastectomy. Within the visualized portions of the upper abdomen there is pancreatic atrophy and left peripelvic f at stranding as well as left proximal collecting system dilatation and uroepithelial thickening on th e last image in the [id number]. Left cardiac device is present. Heart is unenlarged. Atheromatous changes are seen of the abdominal aorta as well as coronary arteries. Lack of intravenous contrast li mits evaluation for hilar adenopathy. No axillary adenopathy is seen. Degenerative changes of the oss eous structures are noted with no suspicious osseous abnormality. IMPRESSION: 1. Focal low-density right posterior basilar segment lower lobe consolidation with air bronchograms a nd no secondary signs of volume loss favoring focal pneumonia. 2. Partially visualized left peripelvic renal sinus fat stranding, proximal left collecting system di latation and uroepithelial thickening. Correlate with clinical exam, urinalysis, renal ultrasound and /or CT abdomen. 3. 5 mm right upper lobe pulmonary nodule for which CT follow-up in one year could be performed for i nterval growth assessment.
[2017-01-06] MEDS: PANTOPRAZOLE 40 MG TABLET PO SCH (06:50)
[2017-01-06] MEDS: LEVOTHYROXINE 25 MCG TAB PO SCH (06:50)
[2017-01-06 06:52] LABS: Basophils % (A) 0 %; CH 32.1; CHCM 35.3; Eosinophils % (A) 1 %; HCT 34.7 % (34.0-46.0); HDW 2.76; HGB 11.6 gm/dL (11.4-16.0); Luc # (Auto) 0.14; Luc % (Auto) 2; Lymphocytes # (A) 1.2 k/uL (1.0-4.8); Lymphocytes % (A) 16 %; MCH 30.6 pg (25.0-35.0); MCHC 33.4 g/dL (31.0-37.0); MCV 91.6 fL (80.0-100.0); Mean Platelet Volume 7.3; Monocytes # (A) 0.5 k/uL (0-1.0); Monocytes % (A) 7 %; Neutrophils # (A) 5.9 k/uL (1.3-7.7); Neutrophils % (A) 75 %; RBC 3.79 m/uL (3.80-5.40); RDW 13.6 % (11.5-15.5); WBC 7.9 k/uL (3.8-10.6)
[2017-01-06 07:02] LABS: Calcium 9.1 mg/dL (8.4-10.2); Potassium 4.3 mmol/L (3.5-5.1); Total Bilirubin 0.4 mg/dL (0.2-1.3); Total Protein 5.3 g/dL (6.3-8.2)
[2017-01-06] MEDS: ENOXAPARIN 30 MG/0.3 ML SYRINGE SQ SCH (09:08)
[2017-01-06] MEDS: ASPIRIN 81 MG CHEW PO SCH (09:09)
[2017-01-06] MEDS: amLODIPine 5 MG TAB PO SCH (09:09)
--- NOTE | 2017-01-06 10:12 | US ---
"EXAMINATION TYPE: US kidneys/renal and bladder DATE OF EXAM: 01/06/2017 COMPARISON: Prior CT in PACS CLINICAL HISTORY: abnormal CT scan. Patient states family history of polycystic renal disease. No westley n EXAM MEASUREMENTS: Right Kidney: 9.3 x 3.6 x 3.7 cm Left Kidney: 10.4 x 4.9 x 5.2 cm Right Kidney: No hydronephrosis or masses seen Left Kidney: Multiple cystic areas visualized throughout the kidney. Largest is visualized in lower p ole with internal septations measuring 4.6 x 2.7 x 3.7 cm . Left-sided hydronephrosis is noted. Bladder: wnl Bilateral Jets seen: No, left jet not visualized on this exam IMPRESSION: 1. Mild to moderate left hydronephrosis and nonvisualization of the left urinary jet secondary to obs tructive uropathy. 2. Complex left lower pole cystic lesion measuring 4.6 x 2.7 x 3.7 cm. Comparison with any prior outs liza imaging for interval growth is recommended in this patient with a stated history of polycystic ki dney disease. A Yellow message has been communicated to Love Vargas MD via the [employer] | Critical Result s ystem on 01/06/2017 10:09 AM, Message ID [id number]."
[2017-01-06] MEDS: ASCORBIC ACID 500 MG TAB PO SCH (12:02)
[2017-01-06] MEDS: CHOLECALCIFEROL 400 UNIT TAB PO SCH (12:02)
--- NOTE | 2017-01-06 15:22 | P.PN ---
Subjective Principal diagnosis: Palpitations This is an 81-year-old female who presented to the hospital initially with symptoms of palpitations. She was found to be very hypertensive on admission here. Patient also had evidence of infiltrate on her chest x-ray suggestive of pneumonia and is currently on antibiotics. Patient was seen in consultation by Dr. 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 He did have a lengthy discussion today with the patient as well as her power of medical attendant regarding the need for implantation of a permanent pacemaker once the infection clears. The risks and benefits of pacemaker implantation were explained to the patient and her power of medical attendant in detail. The plan is within the next 48 hours to proceed. Blood pressure today 155/70 with a heart rate in the 60s. Temperature 99.3. CBC normal, potassium 4.1, BUN 24, creatinine 1.6. 01/06/2017 Seen and examined this morning, status post implantation of permanent pacemaker. Hemodynamically stable. Arrangements are being made for discharge to [facility] today. Objective - Vital Signs Vital signs: Vital Signs Temp 97.7 F 01/06/17 11:55 Pulse 95 01/06/17 11:55 Resp 16 01/06/17 11:55 BP 138/79 01/06/17 11:55 Pulse Ox 97 01/06/17 11:55 Intake & Output 01/05/17 01/06/17 01/06/17 18:59 06:59 18:59 Intake Total 4420 480 318 Output Total 500 Balance 4420 -20 318 Weight 80.5 kg Intake: IV 0 0.9 @ 100mls/hr 0 Intake, IV Titration 280 Amount Sodium Chloride 0.9% 1, 80 000 ml @ 20 mls/hr IV . Q24H [facility] Rx#:[id number] ceFAZolin 2 gm In Sodium 200 Chloride 0.9% 100 ml @ 100 mls/hr IVPB Q6H [facility] Rx#:[id number] Oral 4140 480 318 Output: Urine 500 Other: Voiding Method Toilet Toilet Toilet # Voids 3 2 - Exam PHYSICAL EXAMINATION: HEENT: Head is atraumatic, normocephalic. Pupils equal, round. Neck is supple. There is no elevated jugular venous pressure. HEART EXAMINATION: Heart S1, S2 normal. No murmur or gallop heard. CHEST EXAMINATION: Lungs reveal crackles bilaterally. Site of pacemaker implantation dressing is dry and intact. ABDOMEN: Soft, nontender. Bowel sounds are heard. No organomegaly noted. EXTREMITIES: 2+ peripheral pulses with no evidence of peripheral edema and no calf tenderness noted. NEUROLOGIC [patient is awake, alert and oriented -3.] . - Labs CBC & Chem 7: 01/06/17 05:53 01/06/17 05:53 Labs: Abnormal Lab Results - Last 24 Hours (Table) 01/06/17 01/06/17 Range/Units 05:53 05:53 RBC 3.79 L (3.80-5.40) m/uL Chloride 110 H (98-107) mmol/L Carbon Dioxide 21 L (22-30) mmol/L BUN 28 H (7-17) mg/dL Creatinine 1.77 H (0.52-1.04) mg/dL Total Protein 5.3 L (6.3-8.2) g/dL Albumin 2.8 L (3.5-5.0) g/dL Microbiology - Last 24 Hours (Table) 12/31/16 18:52 Blood Culture - Preliminary Blood No Growth after 120 hours Assessment and Plan (1) Hypothyroid Status: Acute (2) AV block Status: Acute (3) Accelerated hypertension Status: Acute (4) Leukocytosis Status: Acute (5) Palpitations Status: Acute (6) Pneumonia Status: Acute (7) Pacemaker Status: Acute Plan: From cardiology's perspective, patient may be able to be discharged once cleared by the primary. We will make a follow-up appointment in the office post discharge with Dr. Sanchez and in the device clinic in one week.. DNP note has been reviewed, I agree with a documented findings and plan of care. Patient was seen and examined.
--- NOTE | 2017-01-06 15:38 | P.CNPUL ---
History of Present Illness Consult date: 01/06/17 Chief complaint: Right lower lobe pulmonary infiltrate History of present illness: 81-year-old female patient of Dr. Lorraine Felipe who presented to [facility] with a chief complaint of palpitation that woke her up at night and lasted for about 20 minutes, she was evaluated in the emergency room and had evidence of hypertensive emergency with elevated blood pressure was a systolic above 200, she states that she used to take blood pressure medication but she stopped about 6 months ago she states that her primary care physician told her to stop taking blood pressure medication. She was evaluated in the emergency room she also had evidence of infiltrate in the right infrahilar area , on chest x-ray suggestive of pneumonia. She had evidence of hypothyroidism with elevated TSH she was admitted to telemetry floor for further evaluation and treatment she was started on IV antibiotic Levaquin. She was started on metoprolol in the emergency room. The patient was also found to have paroxysmal AV block. She was seen by cardiology. Need for a pacemaker insertion was discussed with her. The procedure was performed yesterday by Dr. Kat on 01/05/2017 without any complication. Postprocedure chest x-ray showed persistent consolidation of the right hilar area and the right lower lobe and for that reason a CAT scan of the chest was requested. The CAT scan of the chest was completed on 01/05/2017 it showed a focal low density right posterior basilar segment lower lobe consolidation with air bronchograms favoring pneumonia. A 5 mm right upper lobe pulmonology was also seen. No elevation of the right hemidiaphragm. The remainder of the lungs are essentially clear. Numerous calcified hilar granulomas are seen in addition to left breast calcification in the right breast mastectomy. An ultrasound of the abdomen and the pelvis was also done that showed [id number] left hydronephrosis and obstructive uropathy on the left was suspected. The complex left lower pole cystic lesion of the kidney was visualized measuring 4.6 x 2.7 x 3.7 cm in size. Clinically, the patient is free of any chest pain. No shortness of breath. No cough or any chest congestion. No signs of any fever, hemoptysis, pleurisy or any other complaints otherwise. Review of Systems Constitutional: Reports weakness Eyes: denies blurred vision, denies bulging eye, denies decreased vision Ears: deny: decreased hearing, ear discharge, earache, tinnitus Ears, nose, mouth and throat: Denies headache, Denies sore throat Cardiovascular: Reports palpitations, Reports shortness of breath, Denies chest pain Respiratory: Denies cough Gastrointestinal: Denies abdominal pain, Denies diarrhea, Denies nausea, Denies vomiting Genitourinary: Denies dysuria, Denies hematuria Musculoskeletal: absent: ankle pain, ankle stiffness, ankle swelling Integumentary: Denies pruritus, Denies rash Neurological: Denies numbness, Denies weakness Psychiatric: Denies anxiety, Denies depression Endocrine: Denies fatigue, Denies weight change Past Medical History Past Medical History: Hypertension Additional Past Medical History / Comment(s): sarcoidosis; hypertension, breast cancer with a previous right-sided mastectomy back in the 70s, hypothyroidism History of Any Multi-Drug Resistant Organisms: None Reported Past Surgical History: Appendectomy, Heart Catheterization With Stent Additional Past Surgical History / Comment(s): masectomy right in ; heart cath with stent done in Dec and Mar Past Anesthesia/Blood Transfusion Reactions: No Reported Reaction Date of Last Stent Placement:: 2008 Past Psychological History: No Psychological Hx Reported Smoking Status: Former smoker Past Alcohol Use History: Rare Past Drug Use History: None Reported Medications and Allergies Home Medications Medication Instructions Recorded Confirmed Type Ascorbic Acid [Vitamin C] 1,000 mg PO DAILY 12/31/16 12/31/16 History Aspirin EC [Ecotrin Low Dose] 81 mg PO DAILY 12/31/16 12/31/16 History Cholecalciferol [Vitamin D3] 400 unit PO DAILY 12/31/16 12/31/16 History [place]-3 Fatty Acids/Fish Oil [Fish 1 cap PO DAILY 12/31/16 12/31/16 History Oil 1,000 mg Softgel] Allergies Allergy/AdvReac Type Severity Reaction Status Date / Time No Known Allergies Allergy Verified 12/31/16 12:44 Physical Exam Vitals: Vital Signs Temp Pulse Resp BP BP Pulse Ox 01/06/17 11:55 97.7 F 95 16 138/79 97 01/06/17 09:06 98.5 F 73 16 135/63 96 01/06/17 04:00 97.6 F 81 17 127/62 97 01/06/17 00:00 97.1 F L 88 16 145/66 96 01/05/17 19:52 97.7 F 84 18 134/80 98 01/05/17 16:00 70 18 127/67 97 Intake and Output 01/05/17 01/06/17 01/06/17 22:59 06:59 14:59 Intake Total 3580 480 118 Output Total 500 Balance 3580 -20 118 Intake: IV 0 0.9 @ 100mls/hr 0 Intake, IV Titration 100 Amount ceFAZolin 2 gm In Sodium 100 Chloride 0.9% 100 ml @ 100 mls/hr IVPB Q6H [facility] Rx#:[id number] Oral 3480 480 118 Output: Urine 500 Other: Voiding Method Toilet Toilet Toilet # Voids 3 2 Weight 80.5 kg The patient appeared well nourished and normally developed. Vital signs as documented. Head exam is unremarkable. No scleral icterus or corneal arcus noted. Neck is without jugular venous distension, thyromegaly, or carotid bruits. Carotid upstrokes are brisk bilaterally. Lungs reveal a bit of crackles in the right lung base. Cardiac exam reveals the PMI to be normally sized and situated. Rhythm is regular. First and second heart sounds normal. No murmurs, rubs or gallops. Abdominal exam reveals normal bowel sounds, no masses, no organomegaly and no aortic enlargement. Extremities are nonedematous and both femoral and pedal pulses are normal. Pacemaker pocket over the left anterior chest area is dry clean and intact. Results - Laboratory Findings CBC and BMP: 01/06/17 05:53 01/06/17 05:53 PT/INR, D-dimer PT 10.0 sec (9.0-12.0) 12/31/16 12:15 INR 1.0 (<1.2) 12/31/16 12:15 Abnormal lab findings: Abnormal Labs 12/31/16 12/31/16 12/31/16 12:15 12:15 18:52 WBC 10.7 H RBC Hgb Hct Neutrophils # 9.3 H Lymphocytes # 0.9 L Chloride 108 H Carbon Dioxide 20 L BUN 19 H Creatinine 1.09 H Glucose 108 H Total Creatine Kinase 28 L Total Protein Albumin TSH 6.510 H 01/02/17 01/02/17 01/03/17 05:47 05:47 06:08 WBC RBC 3.67 L Hgb 11.2 L Hct 33.8 L Neutrophils # 8.6 H Lymphocytes # 0.9 L Chloride 108 H Carbon Dioxide 20 L BUN 24 H Creatinine 1.65 H Glucose Total Creatine Kinase Total Protein 5.7 L Albumin 3.0 L TSH 01/03/17 01/04/17 01/05/17 06:08 05:32 05:27 WBC RBC 3.73 L Hgb Hct Neutrophils # Lymphocytes # 0.8 L Chloride 109 H 109 H Carbon Dioxide 20 L 19 L BUN 31 H 34 H Creatinine 1.80 H 1.80 H Glucose Total Creatine Kinase Total Protein 5.2 L 5.8 L Albumin 2.7 L 3.1 L TSH 01/05/17 01/06/17 01/06/17 05:27 05:53 05:53 WBC RBC 3.79 L Hgb Hct Neutrophils # Lymphocytes # Chloride 110 H 110 H Carbon Dioxide 18 L 21 L BUN 34 H 28 H Creatinine 1.80 H 1.77 H Glucose Total Creatine Kinase Total Protein 5.4 L 5.3 L Albumin 2.8 L 2.8 L TSH - Diagnostic Findings Chest x-ray: image reviewed CT scan - chest: image reviewed Assessment and Plan Plan: Assessment 1 right lower lobe infiltrate/consolidation involving the posterior basilar segment of the right lung base. Rule out focal pneumonia. Atelectasis is felt to be less likely. Malignancy is felt to be less likely. Nevertheless, the patient does not have any significant clinical symptoms to go along with this pneumonia. The possibility of a chronic radiation scar needs to be entertained specially if the patient has received radiation therapy for breast cancer many years back. She has undergone mastectomy on the right side. In any rate, She is covered with a combination of Rocephin and Zithromax. 2 A 5 mm right upper lobe pulmonary nodule, the significance of which is indeterminate and this can be followed up on outpatient basis at a later stage 3 mediastinal lymph node calcification, probably a representation of a previous sarcoidosis which is currently inactive and stable. 4 paroxysmal AV block status post pacemaker insertion. 5 breast cancer with a previous mastectomy 6 hypothyroidism 7 coronary artery disease with previous cardiac catheterization and stenting 8 [id number] left-sided hydronephrosis with possible obstructive uropathy on the left Plan Continue Rocephin and Zithromax. Follow-up chest x-ray regarding the right lower lobe pulmonary consolidation. This is localized in the posterior basilar segment of the right lower lobe. It's possible also that this abnormality is are rather chronic nontender the patient is not having the typical manifestations of an underlying right lung pneumonia. Regards to the pulmonary nodule in the right upper lobe, this is a nonspecific findings and can be monitored with another CAT scan of the chest in 6-12 months time. I think is reasonable to repeat a 6 month CAT scan to monitor the right basilar abnormalities and the right upper lobe pulmonary nodule. Complete a total of seven-day course of antibiotics. We'll follow.
--- NOTE | 2017-01-06 16:02 | CDI ---
In responding to this query, please exercise your independent professional judgment. The [facility] Coding Staff and Clinical Documentation Specialists appreciate your assistance in clarifying documentation, maintaining compliance with coding guidelines, accurately documenting patients condition and capturing severity of illness. The fact that a question is asked does not imply that any particular answer is desired or expected. Communication forms are a method of clarifying documentation and are not made part of the Legal Health Record. Thank you in advance for your clarification. Last Revision, March 2015 Skylar Dumont [address] [address] Documentation Clarification Form Date: 01/06/2017 3:33:00 PM From: Mckenna Vitale Admit Date: 12/31/2016 4:09:00 PM Patient Name: Ann Ross Visit Number: [id number] Discharge Date: Dr. Love Vargas Right infrahilar infiltrate is documented in your H&P and assessment and plan. Patient history/risk factors: hypothyroidism, Hypertension, Former smoker Clinical Indicators: Present with complaint of palpitation. Lab findings: WBC 10.7 Chest x-ray suggestive of pneumonia CT Chest: w/o contrast: Focal low-density right posterior basilar segment lower lobe consolidation with air bronchograms and no secondary signs of volume loss favoring focal pneumonia. 5 mm right upper lobe pulmonary nodule. Lungs: reveal crackles bilaterally no wheezing. Vital Signs: 178/79 85 18 97.4 98 % RA : Treatment: Levaquin IV Consults: In your professional opinion, can you please clarify Pneumonia? Ruled in or Ruled out (Specify type of pneumonia if known) Other Unable to determine Please document in your progress notes and discharge summary in order to capture severity of illness and risk of mortality. Include clinical findings that support your diagnosis. FYI: Press F11 to launch patient chart. CHRISTOPHER
[2017-01-06] MEDS: LEVOFLOXACIN 750MG-D5W PMX 750 MG in DEXTROSE/WATER 1 150ML.BAG IVPB SCH (16:11)
[2017-01-06] MEDS ORDERED: LACTULOSE 20 GM/30 ML CUP PO ONE ×2 (17:24→17:45)
[2017-01-06] MEDS: HYDROmorphone 1 MG/ML 1 ML SYRINGE IVP PRN ×2 (17:38→20:45)
--- NOTE | 2017-01-06 18:17 | P.PN ---
Subjective This is an 81-year-old female who presented to the hospital initially with symptoms of palpitations. She was found to be very hypertensive on admission here. Patient also had evidence of infiltrate on her chest x-ray suggestive of pneumonia and is currently on antibiotics. Patient was seen in consultation by Dr. 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 He did have a lengthy discussion today with the patient as well as her power of assistant prosecuting attorney regarding the need for implantation of a permanent pacemaker once the infection clears. The risks and benefits of pacemaker implantation were explained to the patient and her power of assistant prosecuting attorney in detail. The plan is within the next 48 hours to proceed. Blood pressure today 155/70 with a heart rate in the 60s. Temperature 99.3. CBC normal, potassium 4.1, BUN 24, creatinine 1.6. on 01/02/2017 patient was seen and examined she is alert and oriented in no distress, denies any pain or discomfort. On 01/03/2017 patient is alert and oriented in no apparent distress she has occasional cough otherwise no complaints she denies any chest pain or shortness of breath. Medication and labs were reviewed patient is scheduled for pacemaker placement today. On 01/05/2017 patient doing well in no apparent distress, pacemaker placed, no complications, CXR still showing infiltrate, now radiologist raising possibility of lung mass, will obtain CT scan of the chest and consult pulmonary Objective - Vital Signs Vital signs: Vital Signs Temp 98.4 F 01/06/17 15:54 Pulse 83 01/06/17 15:54 Resp 16 01/06/17 16:30 BP 146/76 01/06/17 15:54 Pulse Ox 95 01/06/17 15:54 Intake & Output 01/05/17 01/06/17 01/06/17 18:59 06:59 18:59 Intake Total 4420 480 318 Output Total 500 100 Balance 4420 -20 218 Weight 80.5 kg Intake: IV 0 0.9 @ 100mls/hr 0 Intake, IV Titration 280 Amount Sodium Chloride 0.9% 1, 80 000 ml @ 20 mls/hr IV . Q24H JINA Rx#:[id number] ceFAZolin 2 gm In Sodium 200 Chloride 0.9% 100 ml @ 100 mls/hr IVPB Q6H JINA Rx#:[id number] Oral 4140 480 318 Output: Urine 500 100 Other: Voiding Method Toilet Toilet Toilet # Voids 3 2 1 - Exam In general patient is alert and oriented 3 in no apparent distress HEENT head normocephalic and atraumatic Neck is supple no JVD no goiter no lymphadenopathy Chest exam reveals a scattered crackles in both bases no wheezing Cardiac exam reveals regular heart sounds S1 and S2 no gallops no murmurs Abdomen is soft nontender no organomegaly with normal bowel sounds Extremity exam reveals no edema no cyanosis or clubbing - Labs CBC & Chem 7: 01/06/17 05:53 01/06/17 05:53 Labs: Abnormal Lab Results - Last 24 Hours (Table) 01/06/17 01/06/17 Range/Units 05:53 05:53 RBC 3.79 L (3.80-5.40) m/uL Chloride 110 H (98-107) mmol/L Carbon Dioxide 21 L (22-30) mmol/L BUN 28 H (7-17) mg/dL Creatinine 1.77 H (0.52-1.04) mg/dL Total Protein 5.3 L (6.3-8.2) g/dL Albumin 2.8 L (3.5-5.0) g/dL Microbiology - Last 24 Hours (Table) 12/31/16 18:52 Blood Culture - Preliminary Blood No Growth after 120 hours Assessment and Plan Plan: #1 episode of palpitation, patient was started on metoprolol in the emergency room will monitor on telemetry to rule out any cardiac arrhythmia, cardiology consultation was requested in the emergency room serial EKG and cardiac enzymes were ordered, Patient had evidence of paroxysmal AV block, patient underwent pacemaker placement. #2 hypertensive emergency, blood pressure in the emergency room 236/96 she was started on oral metoprolol, then switched to Amlodipine. she was also started on IV hydralazine will adjust blood pressure medication during this admission. #3 right infrahilar infiltrate, patient was started on IV Levaquin in ER no improvement on CXR, now radiologist raising the possibility of lung mass, will obtain CT scan of the chest without contrast (Cr 1.8) and consult pulmonary. #4 hypothyroidism TSH on presentation 6.51 Will add Synthroid 25 g once daily #5 for DVT prophylaxis patient was started on Lovenox 40 mg subcu once daily for GI prophylaxis patient was started on Pepcid #6 abnormal Kidney ultrasound urology consult requested
[2017-01-07] MEDS: HYDROmorphone 1 MG/ML 1 ML SYRINGE IVP PRN ×2 (00:31→14:10)
[2017-01-07 05:59] LABS: Basophils % (A) 0 %; CH 31.9; Eosinophils % (A) 0 %; HCT 33.9 % (34.0-46.0); HDW 2.86; HGB 11.3 gm/dL (11.4-16.0); Luc # (Auto) 0.13; Luc % (Auto) 1; Lymphocytes # (A) 0.6 k/uL (1.0-4.8); Lymphocytes % (A) 5 %; MCH 30.7 pg (25.0-35.0); MCHC 33.4 g/dL (31.0-37.0); MCV 91.8 fL (80.0-100.0); Mean Platelet Volume 7.4; Monocytes # (A) 0.7 k/uL (0-1.0); Monocytes % (A) 6 %; Neutrophils # (A) 10.6 k/uL (1.3-7.7); Neutrophils % (A) 88 %; RBC 3.69 m/uL (3.80-5.40); RDW 13.6 % (11.5-15.5); WBC (Perox) 12.62
[2017-01-07] MEDS: PANTOPRAZOLE 40 MG TABLET PO SCH (06:57)
[2017-01-07] MEDS: LEVOTHYROXINE 25 MCG TAB PO SCH (06:57)
[2017-01-07] MEDS: ASPIRIN 81 MG CHEW PO SCH (08:12)
[2017-01-07] MEDS: amLODIPine 5 MG TAB PO SCH (08:12)
[2017-01-07] MEDS: ENOXAPARIN 30 MG/0.3 ML SYRINGE SQ SCH (08:12)
[2017-01-07 10:47] LABS: Appearance,Urine Clear (Clear); Bilirubin,Urine Negative (Negative); Glucose,Urine (UA) Negative (Negative); Ketones,Urine Negative (Negative); Leukocyte Esterase,Urine Trace (Negative); Mucus,Urine Rare /hpf; Nitrite,Urine Negative (Negative); PH, Urine 5.5 (5.0-8.0); Particle Count 1554; Protein,Urine Trace (Negative); RBC,Urine 12 /hpf (0-5); Specific Gravity,Urine 1.016 (1.001-1.035); Squamous Epithelial Cell,Urine <1 /hpf (0-4); UA Billing (MACRO vs. MICRO) MICRO; Urobilinogen,Urine <2.0 mg/dL (<2.0); WBC,Urine 4 /hpf (0-5)
--- NOTE | 2017-01-07 12:18 | P.PN ---
Subjective 81-year-old female patient of Dr. Lorraine Felipe who presented to [facility] with a chief complaint of palpitation that woke her up at night and lasted for about 20 minutes, she was evaluated in the emergency room and had evidence of hypertensive emergency with elevated blood pressure was a systolic above 200, she states that she used to take blood pressure medication but she stopped about 6 months ago she states that her primary care physician told her to stop taking blood pressure medication. She was evaluated in the emergency room she also had evidence of infiltrate in the right infrahilar area , on chest x-ray suggestive of pneumonia. She had evidence of hypothyroidism with elevated TSH she was admitted to telemetry floor for further evaluation and treatment she was started on IV antibiotic Levaquin. She was started on metoprolol in the emergency room. The patient was also found to have paroxysmal AV block. She was seen by cardiology. Need for a pacemaker insertion was discussed with her. The procedure was performed yesterday by Dr. Kat on 01/05/2017 without any complication. Postprocedure chest x-ray showed persistent consolidation of the right hilar area and the right lower lobe and for that reason a CAT scan of the chest was requested. The CAT scan of the chest was completed on 01/05/2017 it showed a focal low density right posterior basilar segment lower lobe consolidation with air bronchograms favoring pneumonia. A 5 mm right upper lobe pulmonology was also seen. No elevation of the right hemidiaphragm. The remainder of the lungs are essentially clear. Numerous calcified hilar granulomas are seen in addition to left breast calcification in the right breast mastectomy. An ultrasound of the abdomen and the pelvis was also done that showed [id number] left hydronephrosis and obstructive uropathy on the left was suspected. The complex left lower pole cystic lesion of the kidney was visualized measuring 4.6 x 2.7 x 3.7 cm in size. Clinically, the patient is free of any chest pain. No shortness of breath. No cough or any chest congestion. No signs of any fever, hemoptysis, pleurisy or any other complaints otherwise. The patient is seen again today 01/07/2017 in follow-up on the selective care unit. She is awake and alert in no acute distress. She denies any worsening shortness of breath, cough or congestion. No pulmonary complaints. She is maintaining good O2 saturations in the upper 90s on room air. She is afebrile. Hemodynamically stable. Objective - Vital Signs Vital signs: Vital Signs Temp 98.7 F 01/07/17 11:11 Pulse 81 01/07/17 11:11 Resp 20 01/07/17 11:11 BP 153/75 01/07/17 11:11 Pulse Ox 97 01/07/17 11:11 Intake & Output 01/06/17 01/07/17 01/07/17 18:59 06:59 18:59 Intake Total 318 120 Output Total 100 100 300 Balance 218 -100 -180 Weight 80.6 kg Intake: IV 0 0.9 @ 100mls/hr 0 Oral 318 120 Output: Urine 100 100 300 Other: Voiding Method Toilet Toilet Toilet # Voids 1 1 - Exam The patient appeared well nourished and normally developed. Vital signs as documented. Head exam is unremarkable. No scleral icterus or corneal arcus noted. Neck is without jugular venous distension, thyromegaly, or carotid bruits. Carotid upstrokes are brisk bilaterally. Lungs reveal a bit of crackles in the right lung base. Cardiac exam reveals the PMI to be normally sized and situated. Rhythm is regular. First and second heart sounds normal. No murmurs, rubs or gallops. Abdominal exam reveals normal bowel sounds, no masses, no organomegaly and no aortic enlargement. Extremities are nonedematous and both femoral and pedal pulses are normal. Pacemaker pocket over the left anterior chest area is dry clean and intact. - Labs CBC & Chem 7: 01/07/17 05:40 01/06/17 05:53 Labs: Abnormal Lab Results - Last 24 Hours (Table) 01/07/17 01/07/17 Range/Units 05:40 10:00 WBC 12.0 H (3.8-10.6) k/uL RBC 3.69 L (3.80-5.40) m/uL Hgb 11.3 L (11.4-16.0) gm/dL Hct 33.9 L (34.0-46.0) % Neutrophils # 10.6 H (1.3-7.7) k/uL Lymphocytes # 0.6 L (1.0-4.8) k/uL Urine Protein Trace H (Negative) Ur Leukocyte Esterase Trace H (Negative) Urine RBC 12 H (0-5) /hpf Urine Mucus Rare H (None) /hpf Microbiology - Last 24 Hours (Table) 12/31/16 18:52 Blood Culture - Final Blood No Growth after 144 hours Assessment and Plan Plan: Assessment 1 right lower lobe infiltrate/consolidation involving the posterior basilar segment of the right lung base. Rule out focal pneumonia. Atelectasis is felt to be less likely. Malignancy is felt to be less likely. Nevertheless, the patient does not have any significant clinical symptoms to go along with this pneumonia. The possibility of a chronic radiation scar needs to be entertained specially if the patient has received radiation therapy for breast cancer many years back. She has undergone mastectomy on the right side. In any rate, She is covered with a combination of Rocephin and Zithromax. 2 A 5 mm right upper lobe pulmonary nodule, the significance of which is indeterminate and this can be followed up on outpatient basis at a later stage 3 mediastinal lymph node calcification, probably a representation of a previous sarcoidosis which is currently inactive and stable. 4 paroxysmal AV block status post pacemaker insertion. 5 breast cancer with a previous mastectomy 6 hypothyroidism 7 coronary artery disease with previous cardiac catheterization and stenting 8 [id number] left-sided hydronephrosis with possible obstructive uropathy on the left Plan The patient was seen and evaluated by Dr. Cano. He continues to doubt significant pneumonia. She'll complete her course of empiric antibiotics in the form of Levaquin. She has no pulmonary complaints. She is cleared for discharge from the pulmonary standpoint. We'll recommend follow-up computed tomography scan of the chest and approximate 6 months time regarding the right basilar abnormalities in the right upper lobe pulmonary nodule. She is encouraged to call sooner with any pulmonary symptoms or other questions or concerns.
[2017-01-07] MEDS: CHOLECALCIFEROL 400 UNIT TAB PO SCH (12:21)
[2017-01-07] MEDS: ASCORBIC ACID 500 MG TAB PO SCH (12:21)
[2017-01-07 13:52] VITALS: BMI 27.8
--- NOTE | 2017-01-07 14:10 | P.PN ---
Subjective Patient is doing well today. No events overnight. Awaiting urology evaluation. Objective - Vital Signs Vital signs: Vital Signs Temp 98.7 F 01/07/17 11:11 Pulse 81 01/07/17 11:11 Resp 20 01/07/17 11:11 BP 153/75 01/07/17 11:11 Pulse Ox 97 01/07/17 11:11 Intake & Output 01/06/17 01/07/17 01/07/17 18:59 06:59 18:59 Intake Total 318 240 Output Total 100 100 300 Balance 218 -100 -60 Weight 80.6 kg 80.6 kg Intake: IV 0 0.9 @ 100mls/hr 0 Oral 318 240 Output: Urine 100 100 300 Other: Voiding Method Toilet Toilet Toilet # Voids 1 1 - Exam General: The patient is awake and alert, in no distress Eye: there is normal conjunctiva bilaterally. Neck: The neck is supple, there is no JVD. Cardiovascular: Normal S1-S2, no S3-S4, no murmurs. Respiratory: Lungs clear to auscultation bilaterally Gastrointestinal: Abdomen is soft, nontender Musculoskeletal: There is no pedal edema. Neurological:. Speech is normal. Skin: Skin is warm and dry - Labs CBC & Chem 7: 01/07/17 05:40 01/06/17 05:53 Labs: Abnormal Lab Results - Last 24 Hours (Table) 01/07/17 01/07/17 Range/Units 05:40 10:00 WBC 12.0 H (3.8-10.6) k/uL RBC 3.69 L (3.80-5.40) m/uL Hgb 11.3 L (11.4-16.0) gm/dL Hct 33.9 L (34.0-46.0) % Neutrophils # 10.6 H (1.3-7.7) k/uL Lymphocytes # 0.6 L (1.0-4.8) k/uL Urine Protein Trace H (Negative) Ur Leukocyte Esterase Trace H (Negative) Urine RBC 12 H (0-5) /hpf Urine Mucus Rare H (None) /hpf Microbiology - Last 24 Hours (Table) 12/31/16 18:52 Blood Culture - Final Blood No Growth after 144 hours Assessment and Plan Plan: 1. AV block status post pacemaker implantation during this admission 2. Right lower lobe pneumonia currently finishing antibiotic course with Levaquin 3./Millimeter right upper lobe pulmonary nodule need follow-up imaging probably in 3-6 months as directed by pulmonology 4. Suspected polycystic kidney disease on ultrasound, awaiting urology evaluation 5. Hypothyroidism, maintained on Synthroid 6. Coronary artery disease with history of stent placement Today, I reviewed her medication list and lab work resolved. Awaiting urology evaluation. Patient reports family history of polycystic kidney disease. PT/ OT evaluation. Discharge planning.
--- NOTE | 2017-01-07 14:33 | P.PN ---
Subjective Principal diagnosis: Palpitations This is an 81-year-old female who presented to the hospital initially with symptoms of palpitations. She was found to be very hypertensive on admission here. Patient also had evidence of infiltrate on her chest x-ray suggestive of pneumonia and is currently on antibiotics. Patient was seen in consultation by Dr. 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 He did have a lengthy discussion today with the patient as well as her power of clerk analyst regarding the need for implantation of a permanent pacemaker once the infection clears. The risks and benefits of pacemaker implantation were explained to the patient and her power of clerk analyst in detail. The plan is within the next 48 hours to proceed. Blood pressure today 155/70 with a heart rate in the 60s. Temperature 99.3. CBC normal, potassium 4.1, BUN 24, creatinine 1.6. 01/06/2017 Seen and examined this morning, status post implantation of permanent pacemaker. Hemodynamically stable. Arrangements are being made for discharge to [facility] today. 01/07/2017 Is stable from cardiology's perspective, complaining of some mild abdominal discomfort today. We will make her follow-up appointment in the office. Objective - Vital Signs Vital signs: Vital Signs Temp 98.7 F 01/07/17 11:11 Pulse 81 01/07/17 11:11 Resp 20 01/07/17 11:11 BP 153/75 01/07/17 11:11 Pulse Ox 97 01/07/17 11:11 Intake & Output 01/06/17 01/07/17 01/07/17 18:59 06:59 18:59 Intake Total 318 240 Output Total 100 100 300 Balance 218 -100 -60 Weight 80.6 kg 80.6 kg Intake: IV 0 0.9 @ 100mls/hr 0 Oral 318 240 Output: Urine 100 100 300 Other: Voiding Method Toilet Toilet Toilet # Voids 1 1 - Exam PHYSICAL EXAMINATION: HEENT: Head is atraumatic, normocephalic. Pupils equal, round. Neck is supple. There is no elevated jugular venous pressure. HEART EXAMINATION: Heart S1, S2 normal. No murmur or gallop heard. CHEST EXAMINATION: Lungs reveal crackles bilaterally. Site of pacemaker implantation dressing is dry and intact. ABDOMEN: Soft, nontender. Bowel sounds are heard. No organomegaly noted. EXTREMITIES: 2+ peripheral pulses with no evidence of peripheral edema and no calf tenderness noted. NEUROLOGIC [patient is awake, alert and oriented -3.] . - Labs CBC & Chem 7: 01/07/17 05:40 01/06/17 05:53 Labs: Abnormal Lab Results - Last 24 Hours (Table) 01/07/17 01/07/17 Range/Units 05:40 10:00 WBC 12.0 H (3.8-10.6) k/uL RBC 3.69 L (3.80-5.40) m/uL Hgb 11.3 L (11.4-16.0) gm/dL Hct 33.9 L (34.0-46.0) % Neutrophils # 10.6 H (1.3-7.7) k/uL Lymphocytes # 0.6 L (1.0-4.8) k/uL Urine Protein Trace H (Negative) Ur Leukocyte Esterase Trace H (Negative) Urine RBC 12 H (0-5) /hpf Urine Mucus Rare H (None) /hpf Microbiology - Last 24 Hours (Table) 12/31/16 18:52 Blood Culture - Final Blood No Growth after 144 hours Assessment and Plan (1) Hypothyroid Status: Acute (2) AV block Status: Acute (3) Accelerated hypertension Status: Acute (4) Leukocytosis Status: Acute (5) Palpitations Status: Acute (6) Pneumonia Status: Acute (7) Pacemaker Status: Acute Plan: From cardiology's perspective, patient may be able to be discharged once cleared by the primary. We will make a follow-up appointment in the office post discharge with Dr. Sanchez and in the device clinic in one week.. DNP note has been reviewed, I agree with a documented findings and plan of care. Patient was seen and examined.
--- NOTE | 2017-01-07 15:52 | P.GSCN ---
History of Present Illness Consult date: 01/07/17 Reason for Consult: Left hydronephrosis History of present illness: The patient is an 82-year-old female whom we are asked to see for left-sided hydronephrosis noted on abdominal ultrasound done recently. The patient is interviewed at the bedside and unfortunately her history is somewhat poor. She' s been in the hospital about a week. She cannot tell me why she came him but by history it was for palpitations. Abdominal ultrasound showed left-sided hydronephrosis as well as cyst. According to the patient she does have a family history of polycystic kidneys. She states she is evaluated years ago but cannot remember how or the results. She states that she does not have a history of polycystic kidneys. She has had some left-sided abdominal pain intermittently for the last week. According the nursing staff she started complaining of this yesterday. She did have a computed tomography scan of the chest early in the week that did identify some hydronephrosis of the upper pole with its all that was seen in the kidney. Her creatinine is 1.8. There are 12 red blood cells per urine. There is no history of stones infections or previous urologic surgery. The abdominal pain is not affected by bowel movements or urination. It comes and goes. Her vital signs are stable. She is not too uncomfortable at present. Review of Systems - Constitutional Constitutional Comment(s): The patient has noted no fever or nausea or vomiting. There is no chest pain or shortness of breath. She has abdominal pain as described above. There is no other urologic problems. There is no major GI problems. She had normal bowel movement today. Past Medical History Past Medical History: Hypertension Additional Past Medical History / Comment(s): sarcoidosis; hypertension, breast cancer with a previous right-sided mastectomy back in the 70s, hypothyroidism History of Any Multi-Drug Resistant Organisms: None Reported Past Surgical History: Appendectomy, Heart Catheterization With Stent Additional Past Surgical History / Comment(s): masectomy right in ; heart cath with stent done in Dec and Mar Past Anesthesia/Blood Transfusion Reactions: No Reported Reaction Date of Last Stent Placement:: 2008 Past Psychological History: No Psychological Hx Reported Smoking Status: Former smoker Past Alcohol Use History: Rare Past Drug Use History: None Reported Medications and Allergies Home Medications Medication Instructions Recorded Confirmed Type Ascorbic Acid [Vitamin C] 1,000 mg PO DAILY 12/31/16 12/31/16 History Aspirin EC [Ecotrin Low Dose] 81 mg PO DAILY 12/31/16 12/31/16 History Cholecalciferol [Vitamin D3] 400 unit PO DAILY 12/31/16 12/31/16 History [place]-3 Fatty Acids/Fish Oil [Fish 1 cap PO DAILY 12/31/16 12/31/16 History Oil 1,000 mg Softgel] Allergies Allergy/AdvReac Type Severity Reaction Status Date / Time No Known Allergies Allergy Verified 12/31/16 12:44 Surgical - Exam Vital Signs Temp Pulse Resp BP Pulse Ox 97.4 F L 85 18 178/79 98 12/31/16 12:00 12/31/16 12:00 12/31/16 12:00 12/31/16 12:00 12/31/16 12:00 - General well developed, well nourished, no distress - Eyes PERRL - ENT no hearing loss - Neck no masses - Respiratory normal expansion, normal respiratory effort - Cardiovascular Rhythm: regular - Abdomen The abdomen was soft and slightly tender in the left lower quadrant - Neurologic normal coordination, normal sensation - Musculoskeletal normal posture - Psychiatric oriented to time, oriented to person, oriented to place, speech is normal, memory intact Results - Labs 01/07/17 05:40 01/06/17 05:53 Abnormal Lab Results - Last 24 Hours (Table) 01/07/17 01/07/17 Range/Units 05:40 10:00 WBC 12.0 H (3.8-10.6) k/uL RBC 3.69 L (3.80-5.40) m/uL Hgb 11.3 L (11.4-16.0) gm/dL Hct 33.9 L (34.0-46.0) % Neutrophils # 10.6 H (1.3-7.7) k/uL Lymphocytes # 0.6 L (1.0-4.8) k/uL Urine Protein Trace H (Negative) Ur Leukocyte Esterase Trace H (Negative) Urine RBC 12 H (0-5) /hpf Urine Mucus Rare H (None) /hpf Microbiology - Last 24 Hours (Table) 12/31/16 18:52 Blood Culture - Final Blood No Growth after 144 hours - Imaging CT scan - chest: image reviewed (Left-sided hydronephrosis) US - abdomen: image reviewed (Left-sided hydronephrosis) Assessment and Plan Plan: Impression: This patient has left-sided hydronephrosis of indeterminate etiology. She has a mild elevation of her creatinine of indeterminate length. She has some mild left-sided pain. I will order a CAT scan of the abdomen and pelvis without contrast to see if we can see a stone at the point of the obstruction. I will be out of the office for several days so my partners will follow.
[2017-01-07] MEDS: IOHEXOL 350 MG/ML 25 ML BOTTLE (ORAL USE) PO PRN ×2 (16:28→17:26)
--- NOTE | 2017-01-07 19:14 | CT ---
EXAMINATION TYPE: CT abdomen pelvis wo con DATE OF EXAM: 01/07/2017 COMPARISON: NONE HISTORY: LLQ pain. CT DLP: 991 mGycm Automated exposure control for dose reduction was used. TECHNIQUE: Helical acquisition of images was performed from the lung bases through the pelvis. FINDINGS: There is consolidation in the posterior basal segment of the right lower lobe. There is no pleural ef fusion. There is no pericardial effusion. Heart is slightly enlarged. Liver shows no focal defect. Bile ducts are not dilated. Gallbladder appears normal. Spleen appears n ormal. There is no sign of a pancreatic mass. There is vascular calcification. Left kidney shows significant hydronephrosis. There is a 12 mm calculus at the left ureteropelvic екатерина ction. There is extensive left-sided perinephric edema. There is an 8 mm calculus in the lower pole l eft kidney. The right kidney shows no hydronephrosis. There is no retroperitoneal adenopathy. There i s no ascites. I see no intestinal wall thickening. There are no dilated loops. Bladder distends falguni hly. There is no sign of a pelvic mass. There is retained fecal material in the right colon. There ar e spondylotic changes in the lumbar spine with multilevel vacuum disc phenomenon. I see no compressio n fracture. IMPRESSION: THERE IS A LARGE CALCULUS OBSTRUCTING THE LEFT KIDNEY AT THE URETEROPELVIC JUNCTION. THERE IS PERINEP HRIC EDEMA. THERE IS A CALCULUS IN THE LOWER POLE LEFT KIDNEY WELL. ATHEROSCLEROTIC VASCULAR DISEA SE. MILD CONSTIPATION. RIGHT LOWER LOBE PNEUMONIA.
[2017-01-08] MEDS: LEVOTHYROXINE 25 MCG TAB PO SCH (06:38)
[2017-01-08] MEDS: PANTOPRAZOLE 40 MG TABLET PO SCH (06:38)
[2017-01-08] MEDS: ASPIRIN 81 MG CHEW PO SCH (08:37)
[2017-01-08] MEDS: amLODIPine 5 MG TAB PO SCH (08:37)
[2017-01-08] MEDS: ENOXAPARIN 30 MG/0.3 ML SYRINGE SQ SCH (08:38)
--- NOTE | 2017-01-08 08:38 | P.PN ---
Progress Note - Text The patient denies any abdominal or flank pain. Noncontrast computed tomography scan of the abdomen/pelvis performed yesterday identified a 6 x 10 mm calculus in the proximal left ureter which is producing moderate left hydronephrosis. The patient has no history of urolithiasis. It is probable that the calculus is a factor as far as her impaired renal function. I discussed options of observation and the use of an alpha guido versus left ureteroscopy with lithotripsy or placement of a left double-J catheter. The patient had may discuss this further with her sister, Maryanne Ponce, and it is felt that the latter option would be the best. The procedure will be set up later this afternoon. Patient is aware that if I cannot safely remove the calculus a double-J catheter may be left to decompress the kidney.
--- NOTE | 2017-01-08 11:35 | P.PN ---
Subjective no issues overnight Objective - Vital Signs Vital signs: Vital Signs Temp 98.8 F 01/08/17 08:00 Pulse 53 L 01/08/17 08:00 Resp 16 01/08/17 08:00 BP 165/74 01/08/17 08:00 Pulse Ox 100 01/08/17 08:00 Intake & Output 01/07/17 01/08/17 01/08/17 18:59 06:59 18:59 Intake Total 240 Output Total 600 500 Balance -360 -500 Weight 80.6 kg 80.8 kg 80.8 kg Intake: Oral 240 Output: Urine 600 500 Other: Voiding Method Toilet Toilet Toilet # Voids 1 - Exam General: The patient is awake and alert, in no distress Eye: there is normal conjunctiva bilaterally. Neck: The neck is supple, there is no JVD. Cardiovascular: Normal S1-S2, no S3-S4, no murmurs. Respiratory: Lungs clear to auscultation bilaterally Gastrointestinal: Abdomen is soft, nontender Musculoskeletal: There is no pedal edema. Neurological:. Speech is normal. Skin: Skin is warm and dry - Labs CBC & Chem 7: 01/07/17 05:40 01/06/17 05:53 Assessment and Plan Plan: 1. AV block status post pacemaker implantation during this admission 2. Right lower lobe pneumonia currently finishing antibiotic course with Levaquin 3./Millimeter right upper lobe pulmonary nodule need follow-up imaging probably in 3-6 months as directed by pulmonology 4. obstructive uropathy with large stone involving the left proximal ureter, seen and evaluated by urology. Scheduled for ureteroscopy today with possible stent placement 5. Hypothyroidism, maintained on Synthroid 6. Coronary artery disease with history of stent placement Today, I reviewed her medication list and lab work result. Continue current regimen. IV fluid hydration. Repeat lab work in the morning. Discharge planning.
--- NOTE | 2017-01-08 12:46 | P.PN ---
Progress Note - Text Anesthesia. With SUZETTE BURGESS on a telephone conversation from [place] concerning the suspension of Ann's no CODE STATUS for surgery today.. Suzette is Ann Arias and P.O.A.. It was agreed that since anesthesia involves many maneuvers and pharmacological interventions shared by ACLS that it was reasonable to lift the status for surgery. The conversation was witnessed by LACIE PEREZ. Dr. Murrieta will be responsible for changing the status to full code preoperatively and then back to no code postoperatively.
[2017-01-08] MEDS: ASCORBIC ACID 500 MG TAB PO SCH (14:14)
[2017-01-08] MEDS: CHOLECALCIFEROL 400 UNIT TAB PO SCH (14:14)
[2017-01-08] MEDS ORDERED: LACTATED RINGERS 1,000 ML IV ONE (15:04)
--- NOTE | 2017-01-08 15:05 | P.PN ---
Subjective This is an 81-year-old female who presented to the hospital initially with symptoms of palpitations. She was found to be very hypertensive on admission here. Patient also had evidence of infiltrate on her chest x-ray suggestive of pneumonia and is currently on antibiotics. Patient was seen in consultation by Dr. 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 He did have a lengthy discussion today with the patient as well as her power of litigation attorney associate regarding the need for implantation of a permanent pacemaker once the infection clears. The risks and benefits of pacemaker implantation were explained to the patient and her power of litigation attorney associate in detail. The plan is within the next 48 hours to proceed. Blood pressure today 155/70 with a heart rate in the 60s. Temperature 99.3. CBC normal, potassium 4.1, BUN 24, creatinine 1.6. 01/06/2017 Seen and examined this morning, status post implantation of permanent pacemaker. Hemodynamically stable. Arrangements are being made for discharge to [facility] today. 01/07/2017 Is stable from cardiology's perspective, complaining of some mild abdominal discomfort today. We will make her follow-up appointment in the office. On 01/08/2017 the patient is being seen in follow-up. Pulmonary status remains stable. Meanwhile the patient was noted to have a CAT scan of the and pelvis and the right lung basilar findings were discussed earlier on the CAT scan of the chest remained essentially unchanged. As such this is likely a chronic finding. At the same time the patient was found to have a large fecalith obstructing the left kidney at the level of the ureteropelvic junction and there is perinephric edema. There was also colchicine lower pole of the left kidney as well. The patient was seen by urology and she is being contemplated for cystoscopy, urethroscopy and double-J stent insertion. Renal function is impaired with a creatinine of 1.6. Meanwhile, the patient remains free of any chest pain. No shortness of breath. No fever or chills. No flank pain for now. Objective - Vital Signs Vital signs: Vital Signs Temp 99.0 F 01/08/17 14:54 Pulse 80 01/08/17 14:54 Resp 18 01/08/17 14:54 BP 131/66 01/08/17 14:54 Pulse Ox 97 01/08/17 14:54 Intake & Output 08/01/08/17 01/08/17 18:59 06:59 18:59 Intake Total 240 Output Total 600 500 Balance -360 -500 Weight 80.6 kg 80.8 kg 80.8 kg Intake: Oral 240 Output: Urine 600 500 Other: Voiding Method Toilet Toilet Toilet # Voids 1 - Exam HEENT: Head is atraumatic, normocephalic. Pupils equal, round. Neck is supple. There is no elevated jugular venous pressure. HEART EXAMINATION: Heart S1, S2 normal. No murmur or gallop heard. CHEST EXAMINATION: Lungs reveal crackles bilaterally. Site of pacemaker implantation dressing is dry and intact. ABDOMEN: Soft, nontender. Bowel sounds are heard. No organomegaly noted. EXTREMITIES: 2+ peripheral pulses with no evidence of peripheral edema and no calf tenderness noted. NEUROLOGIC [patient is awake, alert and oriented -3.] - Labs CBC & Chem 7: 01/07/17 05:40 01/06/17 05:53 Assessment and Plan Plan: Assessment 1 right lower lobe infiltrate/consolidation involving the posterior basilar segment of the right lung base. Rule out focal pneumonia. Atelectasis is felt to be less likely. Malignancy is felt to be less likely. Nevertheless, the patient does not have any significant clinical symptoms to go along with this pneumonia. The possibility of a chronic radiation scar needs to be entertained specially if the patient has received radiation therapy for breast cancer many years back. She has undergone mastectomy on the right side. In any rate, She is covered with a combination of Rocephin and Zithromax. On 01/08/2017, the findings in the right lung remain unchanged. The patient underwent a CAT scan of the abdomen and pelvis or further radiation of hydronephrosis and based on the CAT scan finding the right lung basilar abnormalities were essentially unchanged and I think these are chronic findings probably related to previous radiation therapy to the chest/breast area. No respiratory distress. No cough or sputum production. No other complaints otherwise. 2 A 5 mm right upper lobe pulmonary nodule, the significance of which is indeterminate and this can be followed up on outpatient basis at a later stage 3 mediastinal lymph node calcification, probably a representation of a previous sarcoidosis which is currently inactive and stable. 4 paroxysmal AV block status post pacemaker insertion. 5 breast cancer with a previous mastectomy 6 hypothyroidism 7 coronary artery disease with previous cardiac catheterization and stenting 8 [id number] left-sided hydronephrosis with possible obstructive uropathy on the left, and the patient was found to have a large calculus at the left uteropelvic junction and a urology consultation was also requested. Plan Pulmonary status is stable. Patient is on Levaquin already. Monitor renal function. Urology intervention regarding the obstructive uropathy and left kidney hydronephrosis. CAT scan of the abdomen and pelvis was noted in the right basilar abnormalities remain essentially unchanged. The patient was reassured.
[2017-01-08] MEDS ORDERED: PROPOFOL 10 MG/ML 20 ML VIAL IV ONE (15:16)
[2017-01-08] MEDS ORDERED: MIDAZOLAM 2 MG/2 ML VIAL ONE (15:16)
[2017-01-08] MEDS ORDERED: ePHEDrine SULFATE/0.9% NACL/PF 50 MG/5 ML SYRINGE IV ONE (15:16)
[2017-01-08] MEDS ORDERED: SUCCINYLCHOLINE CHLORIDE 100 MG/5 ML SYR IV ONE (15:16)
[2017-01-08] MEDS ORDERED: LIDOCAINE 1% INJ 10MG/ML (20 ML MDV) ONE (15:16)
[2017-01-08] MEDS ORDERED: fentaNYL (PF) 50 MCG/ML 2 ML AMP ONE (15:16)
--- NOTE | 2017-01-08 16:55 | P.OP ---
Date of Procedure: 01/08/17 Preoperative Diagnosis: Left ureteral calculus with hydronephrosis Postoperative Diagnosis: Left ureteral calculus with hydronephrosis Procedure(s) Performed: Cystoscopy with left ureteroscopy, lithotripsy and placement of left double-J catheter Implants: Anesthesia: GETA Pathology: other (Left ureteral calculus fragments) Condition: stable Disposition: PACU Indications for Procedure: The patient is an 82-year-old female who was discovered to have left hydronephrosis following evaluation of abnormal renal function. Computed tomography scan identified a 6 x 10 mm calculus in the left ureter just superior to the pelvic brim with secondary hydroureteronephrosis. Treatment options were reviewed with the patient and her sister in the patient has elected to proceed with left ureteroscopy with lithotripsy. Operative Findings: Description of Procedure: The patient was taken to the operating suite where adequate general anesthesia via orotracheal intubation was instituted. The patient was placed in the dorsal lithotomy position with her legs suspended from padded Jacobo stirrups. Pneumatic compression stockings were applied to the lower legs. The genitalia was prepped with Betadine solution and draped in a sterile fashion. The external genitalia showed mild stenosis of the introitus but was otherwise unremarkable. The 17-Nauruan cystoscope sheath with 30 lens was passed through the urethra and into the bladder. Both ureteral orifices were of normal location and configuration. The bladder was free of tumor foreign body and diverticulum. A straight 0.035 Glidewire was advanced through the left ureteral orifice and up to the region of the calculus. The ureter was redundant in the region of the calculus initially made it difficult to advance the Glidewire beyond the calculus and up to the region of the renal pelvis. The cystoscope was withdrawn leaving the Glidewire in place. The distal ureter was initially dilated to 11-Nauruan using the obturator from a 13-Nauruan ureteral dilator. The ureter dilated easily was then further dilated to 13- Nauruan using the obturator and 13-Nauruan ureteral reentry sheath. The reentry sheath and obturator were removed leaving the Glidewire in place. Ureteroscopy was performed using the 8.5-Nauruan offset ureteroscope. The distal ureter was unremarkable. The calculus was identified just superior to the pelvic brim but due to redundancy of the ureter in this region it was difficult to maintain adequate visualization of the calculus. A 0.035 super stiff Glidewire was advanced through the ureteroscope and under direct vision beyond the calculus and into the proximal ureter. The other Glidewire was withdrawn leaving the superstiff Glidewire in place. In doing this the ureter straightened so that it was safe to perform lithotripsy on the calculus. The calculus was broken down into multiple small fragments using the 365 fiber and the holmium laser at a setting of 100-300 mJ and 20-30 cps. The largest calculus fragments were then removed using a 1.9-Nauruan nitinol stone basket. At the completion of the procedure no fragment larger than 1 mm in size remained. The superstiff Glidewire was removed and the standard 0.035 Glidewire was replaced through the ureteroscope and ureteroscope was withdrawn. The 22-Nauruan cystoscope sheath with 30 lens was loaded over the Glidewire and reintroduced into the bladder. A 6-Nauruan by 24 cm double-J catheter was advanced over the Glidewire and positioned using fluoroscopy so that the proximal end coiled in the region of the renal pelvis and the distal end coiled in the bladder. The bladder was drained and the cystoscope was withdrawn. The patient tolerated the procedure well and left the operative room awake and in satisfactory condition. The patient be seen back in approximately 10 days at which time cystoscopy with removal of the double-J catheter will be performed in the office
[2017-01-08] MEDS ORDERED: LEVOFLOXACIN 750 MG TAB PO SCH (17:00)
--- NOTE | 2017-01-08 18:58 | FL ---
FLUOROSCOPY 46 seconds of fluoroscopy time were utilized during left retrograde pyelogram. 2 images document the procedure.
[2017-01-09 06:18] LABS: Basophils % (A) 0 %; CH 31.8; CHCM 35.8; Eosinophils % (A) 0 %; HCT 29.8 % (34.0-46.0); HDW 2.91; HGB 10.3 gm/dL (11.4-16.0); Luc # (Auto) 0.11; Luc % (Auto) 1; Lymphocytes # (A) 0.8 k/uL (1.0-4.8); Lymphocytes % (A) 10 %; MCH 30.8 pg (25.0-35.0); MCHC 34.5 g/dL (31.0-37.0); MCV 89.1 fL (80.0-100.0); Mean Platelet Volume 7.4; Monocytes # (A) 0.5 k/uL (0-1.0); Monocytes % (A) 7 %; Neutrophils # (A) 6.3 k/uL (1.3-7.7); Neutrophils % (A) 81 %; RBC 3.35 m/uL (3.80-5.40); RDW 13.1 % (11.5-15.5); WBC 7.8 k/uL (3.8-10.6); WBC (Perox) 8.16
[2017-01-09 06:25] LABS: Calcium 8.7 mg/dL (8.4-10.2); Potassium 4.4 mmol/L (3.5-5.1)
[2017-01-09] MEDS: PANTOPRAZOLE 40 MG TABLET PO SCH (06:30)
[2017-01-09] MEDS: LEVOTHYROXINE 25 MCG TAB PO SCH (06:30)
[2017-01-09] MEDS: ENOXAPARIN 30 MG/0.3 ML SYRINGE SQ SCH (08:11)
[2017-01-09] MEDS: amLODIPine 5 MG TAB PO SCH (08:11)
[2017-01-09] MEDS: ASPIRIN 81 MG CHEW PO SCH (08:11)
--- NOTE | 2017-01-09 12:17 | P.PN ---
Subjective no issues overnight. Kidney function improving. Patient is awake and alert. Objective - Vital Signs Vital signs: Vital Signs Temp 98 F 01/09/17 08:00 Pulse 79 01/09/17 08:00 Resp 18 01/09/17 08:00 BP 117/56 01/09/17 08:00 Pulse Ox 96 01/09/17 08:00 Intake & Output 01/08/17 01/09/17 01/09/17 18:59 06:59 18:59 Intake Total 400 Output Total 0 400 150 Balance 400 -400 -150 Weight 80.8 kg 80.3 kg Intake: IV 400 Output: Urine 400 150 Estimated Blood Loss 0 Other: Voiding Method Toilet Toilet Toilet # Voids 1 1 - Exam General: The patient is awake and alert, in no distress Eye: there is normal conjunctiva bilaterally. Neck: The neck is supple, there is no JVD. Cardiovascular: Normal S1-S2, no S3-S4, no murmurs. Respiratory: Lungs clear to auscultation bilaterally Gastrointestinal: Abdomen is soft, nontender Musculoskeletal: There is no pedal edema. Neurological:. Speech is normal. Skin: Skin is warm and dry - Labs CBC & Chem 7: 01/09/17 06:03 01/09/17 06:03 Labs: Abnormal Lab Results - Last 24 Hours (Table) 01/09/17 01/09/17 Range/Units 06:03 06:03 RBC 3.35 L (3.80-5.40) m/uL Hgb 10.3 L (11.4-16.0) gm/dL Hct 29.8 L (34.0-46.0) % Lymphocytes # 0.8 L (1.0-4.8) k/uL BUN 29 H (7-17) mg/dL Creatinine 1.26 H (0.52-1.04) mg/dL Assessment and Plan Plan: 1. AV block status post pacemaker implantation during this admission 2. Right lower lobe pneumonia currently finishing antibiotic course with Levaquin 3./Millimeter right upper lobe pulmonary nodule need follow-up imaging probably in 3-6 months as directed by pulmonology 4. obstructive uropathy with large stone involving the left proximal ureter, status post cystoscopy, left ureteroscopic, diffuse dropsy, and placement of left double-J catheter 5. Hypothyroidism, maintained on Synthroid 6. Coronary artery disease with history of stent placement 7. Acute kidney injury, secondary to #4. Creatinine trending down and almost back to normal range 8. Mild cognitive impairment Today, I reviewed her medication list and lab work result. Continue current regimen. Repeat lab work in the morning. Discharge planning. geriatric social worker to contact her legal guardian today who reside in [place] for discharge planning. Apparently patient is unable to take care of herself at home.
[2017-01-09] MEDS: ASCORBIC ACID 500 MG TAB PO SCH (12:38)
[2017-01-09] MEDS: CHOLECALCIFEROL 400 UNIT TAB PO SCH (12:38)
--- NOTE | 2017-01-09 13:51 | P.PN ---
Subjective This is an 81-year-old female who presented to the hospital initially with symptoms of palpitations. She was found to be very hypertensive on admission here. Patient also had evidence of infiltrate on her chest x-ray suggestive of pneumonia and is currently on antibiotics. Patient was seen in consultation by Dr. 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 He did have a lengthy discussion today with the patient as well as her power of patent attorney regarding the need for implantation of a permanent pacemaker once the infection clears. The risks and benefits of pacemaker implantation were explained to the patient and her power of patent attorney in detail. The plan is within the next 48 hours to proceed. Blood pressure today 155/70 with a heart rate in the 60s. Temperature 99.3. CBC normal, potassium 4.1, BUN 24, creatinine 1.6. 01/06/2017 Seen and examined this morning, status post implantation of permanent pacemaker. Hemodynamically stable. Arrangements are being made for discharge to [facility] today. 01/07/2017 Is stable from cardiology's perspective, complaining of some mild abdominal discomfort today. We will make her follow-up appointment in the office. On 01/08/2017 the patient is being seen in follow-up. Pulmonary status remains stable. Meanwhile the patient was noted to have a CAT scan of the and pelvis and the right lung basilar findings were discussed earlier on the CAT scan of the chest remained essentially unchanged. As such this is likely a chronic finding. At the same time the patient was found to have a large fecalith obstructing the left kidney at the level of the ureteropelvic junction and there is perinephric edema. There was also colchicine lower pole of the left kidney as well. The patient was seen by urology and she is being contemplated for cystoscopy, urethroscopy and double-J stent insertion. Renal function is impaired with a creatinine of 1.6. Meanwhile, the patient remains free of any chest pain. No shortness of breath. No fever or chills. No flank pain for now. On 10/09/2016 the patient is doing extremely well. Renal function is improving and the patient underwent a cystoscopy and double-J stent insertion. No respiratory difficulties. Pacemaker is in place. The patient is resting comfortably in bed. The patient will be moved to [facility] for further rehabilitation. She is on Lovenox for DVT prophylaxis. She is completing a course of Levaquin for now. Objective - Vital Signs Vital signs: Vital Signs Temp 98 F 01/09/17 08:00 Pulse 79 01/09/17 08:00 Resp 18 01/09/17 08:00 BP 117/56 01/09/17 08:00 Pulse Ox 96 01/09/17 08:00 Intake & Output 01/08/17 01/09/17 01/09/17 18:59 06:59 18:59 Intake Total 400 240 Output Total 0 400 150 Balance 400 -400 90 Weight 80.8 kg 80.3 kg Intake: IV 400 Oral 240 Output: Urine 400 150 Estimated Blood Loss 0 Other: Voiding Method Toilet Toilet Toilet # Voids 1 1 - Exam HEENT: Head is atraumatic, normocephalic. Pupils equal, round. Neck is supple. There is no elevated jugular venous pressure. HEART EXAMINATION: Heart S1, S2 normal. No murmur or gallop heard. CHEST EXAMINATION: Lungs reveal crackles bilaterally. Site of pacemaker implantation dressing is dry and intact. ABDOMEN: Soft, nontender. Bowel sounds are heard. No organomegaly noted. EXTREMITIES: 2+ peripheral pulses with no evidence of peripheral edema and no calf tenderness noted. NEUROLOGIC [patient is awake, alert and oriented -3.] - Labs CBC & Chem 7: 01/09/17 06:03 01/09/17 06:03 Labs: Abnormal Lab Results - Last 24 Hours (Table) 01/09/17 01/09/17 Range/Units 06:03 06:03 RBC 3.35 L (3.80-5.40) m/uL Hgb 10.3 L (11.4-16.0) gm/dL Hct 29.8 L (34.0-46.0) % Lymphocytes # 0.8 L (1.0-4.8) k/uL BUN 29 H (7-17) mg/dL Creatinine 1.26 H (0.52-1.04) mg/dL Assessment and Plan Plan: Assessment 1 right lower lobe infiltrate/consolidation involving the posterior basilar segment of the right lung base. Rule out focal pneumonia. Atelectasis is felt to be less likely. Malignancy is felt to be less likely. Nevertheless, the patient does not have any significant clinical symptoms to go along with this pneumonia. The possibility of a chronic radiation scar needs to be entertained specially if the patient has received radiation therapy for breast cancer many years back. She has undergone mastectomy on the right side. In any rate, She is covered with a combination of Rocephin and Zithromax. On 01/08/2017, the findings in the right lung remain unchanged. The patient underwent a CAT scan of the abdomen and pelvis or further radiation of hydronephrosis and based on the CAT scan finding the right lung basilar abnormalities were essentially unchanged and I think these are chronic findings probably related to previous radiation therapy to the chest/breast area. No respiratory distress. No cough or sputum production. No other complaints otherwise. On 01/09/2017, the patient's respiratory status is stable and there is no change in her breathing patterns at all. She is very comfortable in bed. 2 A 5 mm right upper lobe pulmonary nodule, the significance of which is indeterminate and this can be followed up on outpatient basis at a later stage 3 mediastinal lymph node calcification, probably a representation of a previous sarcoidosis which is currently inactive and stable. 4 paroxysmal AV block status post pacemaker insertion. 5 breast cancer with a previous mastectomy 6 hypothyroidism 7 coronary artery disease with previous cardiac catheterization and stenting 8 [id number] left-sided hydronephrosis with obstructive uropathy status post insertion of a double J stent and subsequent improvement in the creatinine. Renal function is improving and creatinine is down to 1.2. Plan Pulmonary status is stable. Patient is on Levaquin already. Monitor renal function. Further rehabilitation as the patient is being considered for ECF transfer.
--- NOTE | 2017-01-09 14:52 | P.DS ---
Providers Date of admission: 12/31/16 16:09 Expected date of discharge: 01/09/17 Attending physician: Love Vargas Consults: 12/31/16 16:13 Consult Physician Urgent Consulting Provider: Tang Alcocer Consult Reason/Comments: htn, palpitations Do you want consulting provider notified?: Yes 01/05/17 12:55 Consult Physician Routine Consulting Provider: Scotty South Consult Reason/Comments: lung infiltrate, possible lung mass Do you want consulting provider notified?: Yes 01/06/17 14:35 Consult Physician Urgent Consulting Provider: Andres Murrieta Consult Reason/Comments: abnormal ultrasound of kidneys Do you want consulting provider notified?: Yes Primary care physician: Lorraine Felipe Hospital Course: 1. AV block status post pacemaker implantation during this admission 2. Right lower lobe pneumonia currently finishing antibiotic course with Levaquin 3. Right upper lobe pulmonary nodule need follow-up imaging probably in 3-6 months as directed by pulmonology 4. Obstructive uropathy with large stone involving the left proximal ureter, status post cystoscopy, left ureteroscopic, diffuse dropsy, and placement of left double-J catheter 5. Hypothyroidism, maintained on Synthroid 6. Coronary artery disease with history of stent placement 7. Acute kidney injury, secondary to #4. Creatinine trending down and almost back to normal range 8. Mild cognitive impairment Patient Condition at Discharge: Fair Plan - Discharge Summary New Discharge Prescriptions: New amLODIPine BESYLATE [Norvasc] 2.5 mg PO DAILY #30 tab Levofloxacin [Levaquin] 250 mg PO DAILY #5 tab Levothyroxine Sodium [Synthroid] 25 mcg PO DAILY@0630 tab Continue [place]-3 Fatty Acids/Fish Oil [Fish Oil 1,000 mg Softgel] 1 cap PO DAILY Cholecalciferol [Vitamin D3] 400 unit PO DAILY Aspirin EC [Ecotrin Low Dose] 81 mg PO DAILY Ascorbic Acid [Vitamin C] 1,000 mg PO DAILY Discharge Medication List Ascorbic Acid [Vitamin C] 1,000 mg PO DAILY 12/31/16 [History] Aspirin EC [Ecotrin Low Dose] 81 mg PO DAILY 12/31/16 [History] Cholecalciferol [Vitamin D3] 400 unit PO DAILY 12/31/16 [History] [place]-3 Fatty Acids/Fish Oil [Fish Oil 1,000 mg Softgel] 1 cap PO DAILY [History] Levofloxacin [Levaquin] 250 mg PO DAILY #5 tab 01/09/17 [Rx] Levothyroxine Sodium [Synthroid] 25 mcg PO DAILY@0630 tab 01/09/17 [Rx] amLODIPine BESYLATE [Norvasc] 2.5 mg PO DAILY #30 tab 01/09/17 [Rx] Follow up Appointment(s)/Referral(s): Jv Sanchez MD [STAFF PHYSICIAN] - 1 Week [facility], [NON-STAFF] - Andres Murrieta MD [STAFF PHYSICIAN] - 10 Days Activity/Diet/Wound Care/Special Instructions: Patient family requesting follow up appointments be made before the 18 of January if possible. January 18 to the patient family will be unavailable because of flight and prior trip plans Discharge Disposition: TRANSFER TO SNF/ECF
[2017-01-09 15:14] VITALS: BP 140/62; PULSE 87; RESP 16; TEMP 97.2
== END 2017-01-09 17:06 | DRG 242 ==
LOC: EC 11:51 → 6SEL 16:09
PROVIDERS: ADMIT Internal Medicine; ATTEND Internal Medicine
PROC: 02HK3JZ Insertion of Pacemaker Lead into Right Ventricle, Percutaneous Approach (ICD-10-PCS; 2017-01-04)
PROC: 0JH604Z Insertion of Pacemaker, Single Chamber into Chest Subcutaneous Tissue and Fascia, Open Approach (ICD-10-PCS; principal; 2017-01-04 13:30)
PROC: 0TC78ZZ Extirpation of Matter from Left Ureter, Via Natural or Artificial Opening Endoscopic (ICD-10-PCS; 2017-01-08)
PROC: 0T778DZ Dilation of Left Ureter with Intraluminal Device, Via Natural or Artificial Opening Endoscopic (ICD-10-PCS; 2017-01-08)
DX: I44.39 Other atrioventricular block (principal); J18.9 Pneumonia, unspecified organism; N17.9 Acute kidney failure, unspecified; N13.2 Hydronephrosis with renal and ureteral calculous obstruction; I16.1 Hypertensive emergency; D86.9 Sarcoidosis, unspecified; I45.10 Unspecified right bundle-branch block; N18.3 Chronic kidney disease, stage 3 (moderate); E03.9 Hypothyroidism, unspecified; I12.9 Hypertensive chronic kidney disease with stage 1 through stage 4 chronic kidney disease, or unspecified chronic kidney disease; R91.1 Solitary pulmonary nodule; I25.10 Atherosclerotic heart disease of native coronary artery without angina pectoris; G31.84 Mild cognitive impairment of uncertain or unknown etiology; Z79.82 Long term (current) use of aspirin; Z79.899 Other long term (current) drug therapy; Z87.891 Personal history of nicotine dependence; Z95.5 Presence of coronary angioplasty implant and graft; Z85.3 Personal history of malignant neoplasm of breast; Z90.11 Acquired absence of right breast and nipple; Z92.3 Personal history of irradiation
CPT/HCPCS: 33207; 36415; 71020; 71250; 74176; 74420; 76770; 80048; 80053; 81001; 82150; 82365; 82550; 82553; 83690; 83735; 84443; 84484; 85025; 85610; 85730; 87040; 93005; 96374; 96375; 99285

== ENCOUNTER 2018-04-23 11:07 | Emergency (ER) | payer MEDICARE, BC ==
[2018-04-23 11:17] VITALS: TEMP 97.9
--- NOTE | 2018-04-23 11:23 | ED ---
General Adult HPI - General Chief complaint: Recheck/Abnormal Lab/Rx Stated complaint: Nausea Time Seen by Provider: 04/23/18 11:15 Source: patient, RN notes reviewed Mode of arrival: ambulatory Limitations: no limitations - History of Present Illness Initial comments: This is an 83-year-old female who is brought to the emergency department because of nausea. Patient called the ambulance this morning because she was nauseated however when the EMS arrived she said the symptoms had resolved. Later in the day the niece who is out of town found out about this and wanted her to come to the emergency department to be evaluated. Currently the patient denies any nausea. Patient denies any abdominal pain patient denies any chest pain. Patient states she thinks a Center and may be because she was short of breath. Patient states currently she does not feel short of breath. Patient denies any fever chills or cough. Patient does have dementia according to EMS. Patient denies any diarrhea. Patient denies any leg swelling or calf tenderness. - Related Data Home Medications Medication Instructions Recorded Confirmed Aspirin EC [Ecotrin Low Dose] 81 mg PO DAILY 12/31/16 04/23/18 Folic Acid 1 mg PO DAILY 04/23/18 04/23/18 Hydrochlorothiazide [Hydrodiuril] 25 mg PO DAILY 04/23/18 04/23/18 Rosuvastatin [Crestor] 10 mg PO HS 04/23/18 04/23/18 guaiFENesin [Mucinex] 1,200 mg PO BID 04/23/18 04/23/18 Previous Rx's Medication Instructions Recorded Sulfamethox-Tmp 800-160Mg [Bactrim 1 each PO Q12HR #20 tab 04/23/18 DS 800-160 mg] Allergies Allergy/AdvReac Type Severity Reaction Status Date / Time No Known Allergies Allergy Verified 04/23/18 12:09 Review of Systems ROS Statement: Those systems with pertinent positive or pertinent negative responses have been documented in the HPI. ROS Other: All systems not noted in ROS Statement are negative. Past Medical History Past Medical History: Hypertension Additional Past Medical History / Comment(s): sarcoidosis; hypertension, breast cancer with a previous right-sided mastectomy back in the 70s, hypothyroidism History of Any Multi-Drug Resistant Organisms: None Reported Past Surgical History: Appendectomy, Heart Catheterization With Stent Additional Past Surgical History / Comment(s): masectomy right in 1970s; heart cath with stent done in Dec and Mar Past Anesthesia/Blood Transfusion Reactions: No Reported Reaction Date of Last Stent Placement:: 2008 Past Psychological History: No Psychological Hx Reported Smoking Status: Former smoker Past Alcohol Use History: Rare Past Drug Use History: None Reported General Exam - General Exam Comments Initial Comments: GENERAL: Patient is well-developed and well-nourished. Patient is nontoxic and well- hydrated and is in no acute distress. ENT: Neck is soft and supple. No significant lymphadenopathy is noted. Oropharynx is clear. Moist mucous membranes. Neck has full range of motion without eliciting any pain. EYES: The sclera were anicteric and conjunctiva were pink and moist. Extraocular movements were intact and pupils were equal round and reactive to light. Eyelids were unremarkable. PULMONARY: Unlabored respirations. Good breath sounds bilaterally. No audible rales rhonchi or wheezing was noted. CARDIOVASCULAR: There is a regular rate and rhythm without any murmurs gallops or rubs. ABDOMEN: Soft and nontender with normal bowel sounds. No palpable organomegaly was noted. There is no palpable pulsatile mass. SKIN: Skin is clear with no lesions or rashes and otherwise unremarkable. NEUROLOGIC: Patient is alert and oriented 2. Cranial nerves II through XII are grossly intact. Motor and sensory are also intact. Normal speech, volume and content. Symmetrical smile. MUSCULOSKELETAL: Normal extremities with adequate strength and full range of motion. No lower extremity swelling or edema. No calf tenderness. LYMPHATICS: No significant lymphadenopathy is noted PSYCHIATRIC: Normal psychiatric evaluation. Limitations: no limitations Course Vital Signs 04/23/18 11:13 Temperature 97.9 F Pulse Rate 92 Respiratory 18 Rate Blood Pressure 133/97 O2 Sat by Pulse 98 Oximetry Medical Decision Making - Medical Decision Making EKG shows normal sinus rhythm at 82 bpm WI interval 278 QRSs 136 QT interval 428 QTC is 500. Patient's EKG shows a right bundle branch block. Patient's EKG shows no acute changes from a previous EKG. - Lab Data Result diagrams: 04/23/18 11:25 04/23/18 11:25 Lab Results 04/23/18 04/23/18 04/23/18 Range/Units 11:25 11:25 11:25 WBC 8.6 (3.8-10.6) k/uL RBC 4.69 (3.80-5.40) m/uL Hgb 14.4 (11.4-16.0) gm/dL Hct 40.6 (34.0-46.0) % MCV 86.6 (80.0-100.0) fL MCH 30.7 (25.0-35.0) pg MCHC 35.5 (31.0-37.0) g/dL RDW 13.2 (11.5-15.5) % Plt Count 303 (150-450) k/uL Neutrophils % 72 % Lymphocytes % 20 % Monocytes % 5 % Eosinophils % 1 % Basophils % 0 % Neutrophils # 6.2 (1.3-7.7) k/uL Lymphocytes # 1.8 (1.0-4.8) k/uL Monocytes # 0.5 (0-1.0) k/uL Eosinophils # 0.1 (0-0.7) k/uL Basophils # 0.0 (0-0.2) k/uL PT (9.0-12.0) sec INR (<1.2) APTT (22.0-30.0) sec Sodium 139 (137-145) mmol/L Potassium 3.8 (3.5-5.1) mmol/L Chloride 105 (98-107) mmol/L Carbon Dioxide 26 (22-30) mmol/L Anion Gap 8 mmol/L BUN 12 (7-17) mg/dL Creatinine 0.97 (0.52-1.04) mg/dL Est GFR (CKD-EPI)AfAm 62 (>60 ml/min/1.73 sqM) Est GFR (CKD-EPI)NonAf 54 (>60 ml/min/1.73 sqM) Glucose 104 H (74-99) mg/dL Calcium 9.5 (8.4-10.2) mg/dL Total Bilirubin 0.8 (0.2-1.3) mg/dL AST 26 (14-36) U/L ALT 32 (9-52) U/L Alkaline Phosphatase 130 H (38-126) U/L Total Creatine Kinase 40 (30-135) U/L CK-MB (CK-2) 0.5 (0.0-2.4) ng/mL CK-MB (CK-2) Rel Index 1.3 Troponin I <0.012 (0.000-0.034) ng/mL NT-Pro-B Natriuret Pep pg/mL Total Protein 6.4 (6.3-8.2) g/dL Albumin 3.4 L (3.5-5.0) g/dL Urine Color Urine Appearance (Clear) Urine pH (5.0-8.0) Ur Specific [place] (1.001-1.035) Urine Protein (Negative) Urine Glucose (UA) (Negative) Urine Ketones (Negative) Urine Blood (Negative) Urine Nitrite (Negative) Urine Bilirubin (Negative) Urine Urobilinogen (<2.0) mg/dL Ur Leukocyte Esterase (Negative) Urine WBC (0-5) /hpf Urine WBC Clumps (None) /hpf Ur Squamous Epith Cells (0-4) /hpf Urine Bacteria (None) /hpf Urine Mucus (None) /hpf 04/23/18 04/23/18 04/23/18 Range/Units 11:25 11:25 13:10 WBC (3.8-10.6) k/uL RBC (3.80-5.40) m/uL Hgb (11.4-16.0) gm/dL Hct (34.0-46.0) % MCV (80.0-100.0) fL MCH (25.0-35.0) pg MCHC (31.0-37.0) g/dL RDW (11.5-15.5) % Plt Count (150-450) k/uL Neutrophils % % Lymphocytes % % Monocytes % % Eosinophils % % Basophils % % Neutrophils # (1.3-7.7) k/uL Lymphocytes # (1.0-4.8) k/uL Monocytes # (0-1.0) k/uL Eosinophils # (0-0.7) k/uL Basophils # (0-0.2) k/uL PT 10.6 (9.0-12.0) sec INR 1.0 (<1.2) APTT 22.7 (22.0-30.0) sec Sodium (137-145) mmol/L Potassium (3.5-5.1) mmol/L Chloride (98-107) mmol/L Carbon Dioxide (22-30) mmol/L Anion Gap mmol/L BUN (7-17) mg/dL Creatinine (0.52-1.04) mg/dL Est GFR (CKD-EPI)AfAm (>60 ml/min/1.73 sqM) Est GFR (CKD-EPI)NonAf (>60 ml/min/1.73 sqM) Glucose (74-99) mg/dL Calcium (8.4-10.2) mg/dL Total Bilirubin (0.2-1.3) mg/dL AST (14-36) U/L ALT (9-52) U/L Alkaline Phosphatase (38-126) U/L Total Creatine Kinase (30-135) U/L CK-MB (CK-2) (0.0-2.4) ng/mL CK-MB (CK-2) Rel Index Troponin I (0.000-0.034) ng/mL NT-Pro-B Natriuret Pep 235 pg/mL Total Protein (6.3-8.2) g/dL Albumin (3.5-5.0) g/dL Urine Color Yellow Urine Appearance Cloudy H (Clear) Urine pH 7.0 (5.0-8.0) Ur Specific [place] 1.013 (1.001-1.035) Urine Protein Trace H (Negative) Urine Glucose (UA) Negative (Negative) Urine Ketones Negative (Negative) Urine Blood Trace H (Negative) Urine Nitrite Negative (Negative) Urine Bilirubin Negative (Negative) Urine Urobilinogen 2.0 (<2.0) mg/dL Ur Leukocyte Esterase Large H (Negative) Urine WBC >182 H (0-5) /hpf Urine WBC Clumps Few H (None) /hpf Ur Squamous Epith Cells 4 (0-4) /hpf Urine Bacteria Few H (None) /hpf Urine Mucus Rare H (None) /hpf Disposition Clinical Impression: Urinary tract infection Disposition: HOME SELF-CARE Condition: Good Instructions: Urinary Tract Infection in Men (ED) Prescriptions: Sulfamethox-Tmp 800-160Mg [Bactrim DS 800-160 mg] 1 each PO Q12HR #20 tab Is patient prescribed a controlled substance at d/c from ED?: No Referrals: Nonstaff,Physician [REFERRING] - 1-2 days Time of Disposition: 14:17
[2018-04-23 12:07] LABS: Basophils % (A) 0 %; Eosinophils # (A) 0.1 k/uL (0-0.7); Eosinophils % (A) 1 %; HCT 40.6 % (34.0-46.0); HGB 14.4 gm/dL (11.4-16.0); Lymphocytes # (A) 1.8 k/uL (1.0-4.8); Lymphocytes % (A) 20 %; MCH 30.7 pg (25.0-35.0); MCHC 35.5 g/dL (31.0-37.0); MCV 86.6 fL (80.0-100.0); Mean Platelet Volume 7.2; Monocytes # (A) 0.5 k/uL (0-1.0); Monocytes % (A) 5 %; Neutrophils # (A) 6.2 k/uL (1.3-7.7); Neutrophils % (A) 72 %; Platelet Count 303 k/uL (150-450); RBC 4.69 m/uL (3.80-5.40); RDW 13.2 % (11.5-15.5); WBC 8.6 k/uL (3.8-10.6)
--- NOTE | 2018-04-23 12:08 | XR ---
EXAMINATION TYPE: XR chest 2V DATE OF EXAM: 04/23/2018 COMPARISON: Chest x-ray and CT chest January 05, 2017. HISTORY: Difficulty in breathing TECHNIQUE: Frontal and lateral views of the chest are obtained. FINDINGS: There is chronic parenchymal change without suspicious new focal air space opacity, pleura l effusion, or pneumothorax seen. There is persistent right medial basilar consolidation redemonstrat ed. The cardiac silhouette size remains enlarged with single lead pacemaker. The osseous structures are demineralized. Right breast is surgically absent. IMPRESSION: Chronic consolidation medial right lung base is presumed related to treatment change from right-sided breast cancer. No significant change from prior studies. No new infiltrate is seen.
[2018-04-23 12:11] LABS: Prothrombin Time 10.6 sec (9.0-12.0)
[2018-04-23 12:18] LABS: Albumin 3.4 g/dL (3.5-5.0); Calcium 9.5 mg/dL (8.4-10.2); Potassium 3.8 mmol/L (3.5-5.1); Total Bilirubin 0.8 mg/dL (0.2-1.3); Total Protein 6.4 g/dL (6.3-8.2)
[2018-04-23 12:31] LABS: Creatine Kinase 40 U/L (30-135)
[2018-04-23 12:34] LABS: Partial Thromboplastin Time 22.7 sec (22.0-30.0)
[2018-04-23 12:43] LABS: Creatine Kinase MB 0.5 ng/mL (0.0-2.4); Troponin I <0.012 ng/mL (0.000-0.034)
[2018-04-23 13:48] LABS: Appearance,Urine Cloudy (Clear); Bacteria,Urine Few /hpf; Bilirubin,Urine Negative (Negative); Blood,Urine Trace (Negative); Color,Urine Yellow; Glucose,Urine (UA) Negative (Negative); Ketones,Urine Negative (Negative); Leukocyte Esterase,Urine Large (Negative); Mucus,Urine Rare /hpf; Nitrite,Urine Negative (Negative); Protein,Urine Trace (Negative); Specific Gravity,Urine 1.013 (1.001-1.035); Squamous Epithelial Cell,Urine 4 /hpf (0-4); WBC,Urine >182 /hpf (0-5)
[2018-04-23] MEDS ORDERED: cefTRIAXone 1,000 MG VIAL (IM USE) IM STA (13:53)
[2018-04-23 14:49] VITALS: BP 109/66; PULSE 108; RESP 16
== END 2018-04-23 15:05 | disposition home or self-care (01) ==
LOC: EC 11:07
DX: N39.0 Urinary tract infection, site not specified (principal); R11.0 Nausea; I45.10 Unspecified right bundle-branch block; I10 Essential (primary) hypertension; Z85.3 Personal history of malignant neoplasm of breast; Z95.5 Presence of coronary angioplasty implant and graft; Z87.891 Personal history of nicotine dependence; Z79.82 Long term (current) use of aspirin; Z79.899 Other long term (current) drug therapy
CPT/HCPCS: 36415; 93005; 83880; 80053; 82550; 82553; 84484; 85025; 85610; 85730; 81001; 71046; 99285; 96372; J0696

== ENCOUNTER 2018-04-26 15:23 | Emergency (ER) | payer MEDICARE, BC ==
[2018-04-26 15:28] VITALS: TEMP 97.7
[2018-04-26] MEDS ORDERED: SODIUM CHLORIDE 0.9% 1,000 ML IV STA (15:47)
[2018-04-26] MEDS ORDERED: ONDANSETRON 4 MG/2 ML VIAL IVP STA (15:50)
--- NOTE | 2018-04-26 15:51 | ED ---
General Adult HPI - General Source: patient, RN notes reviewed Mode of arrival: wheelchair Limitations: no limitations <Juan C Camejo - Last Filed: 04/26/18 17:52> <Scotty Quijano - Last Filed: 04/26/18 19:10> - General Chief complaint: Nausea/Vomiting/Diarrhea Stated complaint: Fever Time Seen by Provider: 04/26/18 15:34 - History of Present Illness Initial comments: Patient 83-year-old female presented to the emergency room today with a chief complaint of cough congestion over the last 2 weeks and feeling nauseated. Patient does admit that she was seen in the emergency room recently and diagnosed with a urinary tract infection. She states that she was on Bactrim for one day. States that family physician to change to Augmentin. Was also placed on azithromycin for her upper respiratory infection. States she still has 2 days left of Z-Erick to take. Patient states that she is not feeling any better. Has been more lethargic and sleeping more. Patient admits still having cough. Admits to a little sputum production. Denies any other complaints or symptoms. Patient denies any recent fever, chills, shortness of breath, chest pain, back pain, abdominal pain, vomiting, numbness or tingling, headaches or visual changes, or any other complaints. (Juan C Camejo) - Related Data Home Medications Medication Instructions Recorded Confirmed Folic Acid 1 mg PO DAILY 04/23/18 04/26/18 Hydrochlorothiazide [Hydrodiuril] 25 mg PO DAILY 04/23/18 04/26/18 guaiFENesin [Mucinex] 1,200 mg PO BID 04/23/18 04/26/18 Amoxic-Pot Clav 875-125Mg 1 tab PO Q12H 04/26/18 04/26/18 [Augmentin 875-125] Azithromycin [Zithromax Z-pack] See Taper PO DIRECTED 04/26/18 04/26/18 Previous Rx's Medication Instructions Recorded Ondansetron Odt [Zofran ODT] 4 mg PO Q8HR PRN #20 tab 04/26/18 Allergies Allergy/AdvReac Type Severity Reaction Status Date / Time No Known Allergies Allergy Verified 04/26/18 16:17 Review of Systems ROS Other: All systems not noted in ROS Statement are negative. <Juan C aCmejo - Last Filed: 04/26/18 17:52> ROS Other: All systems not noted in ROS Statement are negative. <Scotty Quijano - Last Filed: 04/26/18 19:10> ROS Statement: Those systems with pertinent positive or pertinent negative responses have been documented in the HPI. Past Medical History Past Medical History: Hypertension Additional Past Medical History / Comment(s): sarcoidosis; hypertension, breast cancer with a previous right-sided mastectomy back in the 70s, hypothyroidism History of Any Multi-Drug Resistant Organisms: None Reported Past Surgical History: Appendectomy, Heart Catheterization With Stent Additional Past Surgical History / Comment(s): masectomy right in ; heart cath with stent done in Dec and Mar Past Anesthesia/Blood Transfusion Reactions: No Reported Reaction Date of Last Stent Placement:: 2008 Past Psychological History: No Psychological Hx Reported Smoking Status: Former smoker Past Alcohol Use History: Rare Past Drug Use History: None Reported <Juan C Camejo - Last Filed: 04/26/18 17:52> General Exam Limitations: no limitations <Juan C Camejo - Last Filed: 04/26/18 17:52> <Scotty Quijano - Last Filed: 04/26/18 19:10> - General Exam Comments Initial Comments: General: The patient is awake and alert, in no distress, and does not appear acutely ill. Eye:There is normal conjunctiva bilaterally. No signs of icterus. Neck: The neck is supple, there is no tenderness or JVD. Cardiovascular: There is a regular rate and rhythm. No murmur, rub or gallop is appreciated. Respiratory: Lungs are clear to auscultation, respirations are non-labored, breath sounds are equal. No wheezes, stridor, rales, or rhonchi. Gastrointestinal: Abdomen soft on palpation. Nontender. Musculoskeletal: Normal ROM, no tenderness. Strength 5/5. Sensation intact. Pulses equal bilaterally 2+. Neurological: A&O x 3. CN II-XII intact, There are no obvious motor or sensory deficits. Coordination appears grossly intact. Speech is normal. Skin: Skin is warm and dry and no rashes or lesions are noted. Psychiatric: Cooperative, appropriate mood & affect, normal judgment. (Juan C Camejo) Course <Juan C Camejo - Last Filed: 04/26/18 17:52> <Scotty Quijano - Last Filed: 04/26/18 19:10> Vital Signs 04/26/18 04/26/18 15:25 18:00 Temperature 97.7 F Pulse Rate 96 80 Respiratory 18 20 Rate Blood Pressure 122/79 128/76 O2 Sat by Pulse 99 Oximetry - Reevaluation(s) Reevaluation #1: 04/26/18 19:10 AMANDA supervision: I pursued a evaluation of this case patient had presented with complaints of cough. This is For weeks. Patient evaluation showed no definite acute findings. I do agree with the assessment and plan. Will follow-up. (Scotty Quijano) Medical Decision Making - Lab Data Result diagrams: 04/26/18 16:10 04/26/18 16:10 <Juan C Camejo - Last Filed: 04/26/18 17:52> - Lab Data Result diagrams: 04/26/18 16:10 04/26/18 16:10 <Scotty Quijano - Last Filed: 04/26/18 19:10> - Medical Decision Making 83-year-old female presenting for nausea and upper respiration symptoms over the last 2 weeks was diagnosed with UTI on last visit to the hospital. Has been on antibiotics. Urinalysis reviewed today and shows a markedly improvement. Patient has been on antibiotics. Patient does admit that appetites been somewhat down. She was given a liter bolus and states she feels much better at this time. Chest x-ray shows no acute abnormality. Remaining labs been reviewed unremarkable. Patient's vitals are stable. Patient discomfort being discharged home advised follow-up family physician and returning for any other concerns. (Juan C Camejo) - Lab Data Lab Results 04/26/18 04/26/18 04/26/18 Range/Units 16:10 16:10 16:10 WBC 7.7 (3.8-10.6) k/uL RBC 4.59 (3.80-5.40) m/uL Hgb 13.6 (11.4-16.0) gm/dL Hct 40.2 (34.0-46.0) % MCV 87.5 (80.0-100.0) fL MCH 29.7 (25.0-35.0) pg MCHC 33.9 (31.0-37.0) g/dL RDW 13.7 (11.5-15.5) % Plt Count 284 (150-450) k/uL Neutrophils % 69 % Lymphocytes % 22 % Monocytes % 6 % Eosinophils % 1 % Basophils % 0 % Neutrophils # 5.3 (1.3-7.7) k/uL Lymphocytes # 1.7 (1.0-4.8) k/uL Monocytes # 0.5 (0-1.0) k/uL Eosinophils # 0.1 (0-0.7) k/uL Basophils # 0.0 (0-0.2) k/uL PT (9.0-12.0) sec INR (<1.2) APTT (22.0-30.0) sec Sodium 139 (137-145) mmol/L Potassium 4.0 (3.5-5.1) mmol/L Chloride 105 (98-107) mmol/L Carbon Dioxide 23 (22-30) mmol/L Anion Gap 11 mmol/L BUN 11 (7-17) mg/dL Creatinine 1.21 H (0.52-1.04) mg/dL Est GFR (CKD-EPI)AfAm 48 (>60 ml/min/1.73 sqM) Est GFR (CKD-EPI)NonAf 41 (>60 ml/min/1.73 sqM) Glucose 104 H (74-99) mg/dL Calcium 9.4 (8.4-10.2) mg/dL Total Bilirubin 1.0 (0.2-1.3) mg/dL AST 31 (14-36) U/L ALT 30 (9-52) U/L Alkaline Phosphatase 106 (38-126) U/L Total Creatine Kinase 37 (30-135) U/L CK-MB (CK-2) 0.4 (0.0-2.4) ng/mL CK-MB (CK-2) Rel Index 1.1 Troponin I <0.012 (0.000-0.034) ng/mL Total Protein 6.8 (6.3-8.2) g/dL Albumin 3.6 (3.5-5.0) g/dL Amylase 52 (30-110) U/L Lipase 123 (23-300) U/L Urine Color Urine Appearance (Clear) Urine pH (5.0-8.0) Ur Specific [place] (1.001-1.035) Urine Protein (Negative) Urine Glucose (UA) (Negative) Urine Ketones (Negative) Urine Blood (Negative) Urine Nitrite (Negative) Urine Bilirubin (Negative) Urine Urobilinogen (<2.0) mg/dL Ur Leukocyte Esterase (Negative) Urine RBC (0-5) /hpf Urine WBC (0-5) /hpf Ur Squamous Epith Cells (0-4) /hpf Hyaline Casts (0-2) /lpf 04/26/18 04/26/18 Range/Units 16:10 17:16 WBC (3.8-10.6) k/uL RBC (3.80-5.40) m/uL Hgb (11.4-16.0) gm/dL Hct (34.0-46.0) % MCV (80.0-100.0) fL MCH (25.0-35.0) pg MCHC (31.0-37.0) g/dL RDW (11.5-15.5) % Plt Count (150-450) k/uL Neutrophils % % Lymphocytes % % Monocytes % % Eosinophils % % Basophils % % Neutrophils # (1.3-7.7) k/uL Lymphocytes # (1.0-4.8) k/uL Monocytes # (0-1.0) k/uL Eosinophils # (0-0.7) k/uL Basophils # (0-0.2) k/uL PT 10.7 (9.0-12.0) sec INR 1.0 (<1.2) APTT 22.0 (22.0-30.0) sec Sodium (137-145) mmol/L Potassium (3.5-5.1) mmol/L Chloride (98-107) mmol/L Carbon Dioxide (22-30) mmol/L Anion Gap mmol/L BUN (7-17) mg/dL Creatinine (0.52-1.04) mg/dL Est GFR (CKD-EPI)AfAm (>60 ml/min/1.73 sqM) Est GFR (CKD-EPI)NonAf (>60 ml/min/1.73 sqM) Glucose (74-99) mg/dL Calcium (8.4-10.2) mg/dL Total Bilirubin (0.2-1.3) mg/dL AST (14-36) U/L ALT (9-52) U/L Alkaline Phosphatase (38-126) U/L Total Creatine Kinase (30-135) U/L CK-MB (CK-2) (0.0-2.4) ng/mL CK-MB (CK-2) Rel Index Troponin I (0.000-0.034) ng/mL Total Protein (6.3-8.2) g/dL Albumin (3.5-5.0) g/dL Amylase (30-110) U/L Lipase (23-300) U/L Urine Color Yellow Urine Appearance Clear (Clear) Urine pH 7.0 (5.0-8.0) Ur Specific [place] 1.009 (1.001-1.035) Urine Protein Negative (Negative) Urine Glucose (UA) Negative (Negative) Urine Ketones Negative (Negative) Urine Blood Negative (Negative) Urine Nitrite Negative (Negative) Urine Bilirubin Negative (Negative) Urine Urobilinogen <2.0 (<2.0) mg/dL Ur Leukocyte Esterase Trace H (Negative) Urine RBC <1 (0-5) /hpf Urine WBC 2 (0-5) /hpf Ur Squamous Epith Cells <1 (0-4) /hpf Hyaline Casts 3 H (0-2) /lpf Disposition Is patient prescribed a controlled substance at d/c from ED?: No Time of Disposition: 17:53 <Juan C Camejo - Last Filed: 04/26/18 17:52> <Scotty Quijano - Last Filed: 04/26/18 19:10> Clinical Impression: UTI (urinary tract infection), Nausea Disposition: HOME SELF-CARE Condition: Good Instructions: Acute Nausea and Vomiting (ED) Additional Instructions: Please continue present prescribed antibiotics. Please increase oral fluids as discussed. Please follow family doctor over the next 2 days return if any symptoms increase or worsen or for any other concerns. Prescriptions: Ondansetron Odt [Zofran ODT] 4 mg PO Q8HR PRN #20 tab PRN Reason: Nausea Referrals: Lazaro Nowak MD [Primary Care Provider] - 1-2 days Addendum entered and electronically signed by Juan C Camejo PA-C 04/26/18 18: 00: EKG performed at 1617: Shows normal sinus rhythm at 85 bpm. AR interval 192. QRS 136 QT/QTc 406/483. This shows evidence for right bundle branch block and left anterior fascicular block. No acute ST changes. Compared appears EKG on 04/23/2018 showed no change.
[2018-04-26 16:19] LABS: Basophils % (A) 0 %; Eosinophils # (A) 0.1 k/uL (0-0.7); Eosinophils % (A) 1 %; HCT 40.2 % (34.0-46.0); HGB 13.6 gm/dL (11.4-16.0); Lymphocytes # (A) 1.7 k/uL (1.0-4.8); Lymphocytes % (A) 22 %; MCH 29.7 pg (25.0-35.0); MCHC 33.9 g/dL (31.0-37.0); MCV 87.5 fL (80.0-100.0); Mean Platelet Volume 6.4; Monocytes # (A) 0.5 k/uL (0-1.0); Monocytes % (A) 6 %; Neutrophils # (A) 5.3 k/uL (1.3-7.7); Neutrophils % (A) 69 %; Platelet Count 284 k/uL (150-450); RBC 4.59 m/uL (3.80-5.40); RDW 13.7 % (11.5-15.5); WBC 7.7 k/uL (3.8-10.6)
[2018-04-26 16:27] LABS: Albumin 3.6 g/dL (3.5-5.0); Calcium 9.4 mg/dL (8.4-10.2); Total Protein 6.8 g/dL (6.3-8.2)
[2018-04-26 16:30] LABS: Prothrombin Time 10.7 sec (9.0-12.0)
--- NOTE | 2018-04-26 16:47 | XR ---
EXAMINATION TYPE: XR chest 2V DATE OF EXAM: 04/26/2018 COMPARISON: Chest x-ray April 23, 2018. CT chest January 01, 2017. HISTORY: Cough and lethargy. TECHNIQUE: Frontal and lateral views of the chest are obtained. FINDINGS: Surgical clips from right-sided mastectomy are redemonstrated. Osseous structures remain d emineralized. Underlying scoliosis is again seen. There is stable mild cardiomegaly with single lead pacemaker. There is chronic emphysematous change with right infrahilar chronic consolidation redemons trated. No new focal airspace opacity, pleural effusion, or pneumothorax is identified bilaterally. IMPRESSION: Chronic consolidation medial right lung base. No new acute infiltrate. No significant ch darin from prior studies.
[2018-04-26 16:54] LABS: Creatine Kinase 37 U/L (30-135)
[2018-04-26 17:05] LABS: Creatine Kinase MB 0.4 ng/mL (0.0-2.4); Troponin I <0.012 ng/mL (0.000-0.034)
[2018-04-26 17:38] LABS: Appearance,Urine Clear (Clear); Bilirubin,Urine Negative (Negative); Blood,Urine Negative (Negative); Color,Urine Yellow; Glucose,Urine (UA) Negative (Negative); Hyaline Casts,Urine 3 /lpf (0-2); Ketones,Urine Negative (Negative); Leukocyte Esterase,Urine Trace (Negative); Nitrite,Urine Negative (Negative); Protein,Urine Negative (Negative); RBC,Urine <1 /hpf (0-5); Specific Gravity,Urine 1.009 (1.001-1.035); Squamous Epithelial Cell,Urine <1 /hpf (0-4); Urobilinogen,Urine <2.0 mg/dL (<2.0)
[2018-04-26 18:31] VITALS: BP 128/76; PULSE 80; RESP 20
== END 2018-04-26 18:35 | disposition home or self-care (01) ==
LOC: EC 15:23
DX: N39.0 Urinary tract infection, site not specified (principal); I45.10 Unspecified right bundle-branch block; I44.4 Left anterior fascicular block; J06.9 Acute upper respiratory infection, unspecified; R63.8 Other symptoms and signs concerning food and fluid intake; R11.0 Nausea; R53.83 Other fatigue; I10 Essential (primary) hypertension; Z87.891 Personal history of nicotine dependence; Z79.899 Other long term (current) drug therapy; Z85.3 Personal history of malignant neoplasm of breast; Z90.11 Acquired absence of right breast and nipple; Z90.49 Acquired absence of other specified parts of digestive tract; Z95.5 Presence of coronary angioplasty implant and graft
CPT/HCPCS: 36415; 93005; 80053; 82150; 82550; 82553; 83690; 84484; 85025; 85610; 85730; 81001; 71046; 99284; 96374; 96361; J2405

== ENCOUNTER 2018-05-08 13:44 | Emergency (ER) | payer MEDICARE, BC ==
[2018-05-08] MEDS ORDERED: SODIUM CHLORIDE 0.9% 1,000 ML IV STA (14:59)
[2018-05-08 15:41] LABS: Basophils % (A) 0 %; Eosinophils # (A) 0.4 k/uL (0-0.7); Eosinophils % (A) 6 %; HCT 39.8 % (34.0-46.0); HGB 12.9 gm/dL (11.4-16.0); Lymphocytes # (A) 1.6 k/uL (1.0-4.8); Lymphocytes % (A) 23 %; MCHC 32.4 g/dL (31.0-37.0); MCV 89.5 fL (80.0-100.0); Mean Platelet Volume 6.7; Monocytes # (A) 0.4 k/uL (0-1.0); Monocytes % (A) 5 %; Neutrophils # (A) 4.5 k/uL (1.3-7.7); Neutrophils % (A) 64 %; Platelet Count 188 k/uL (150-450); RBC 4.44 m/uL (3.80-5.40); RDW 14.1 % (11.5-15.5)
[2018-05-08 15:49] LABS: Albumin 3.2 g/dL (3.5-5.0); Calcium 9.3 mg/dL (8.4-10.2); Potassium 4.1 mmol/L (3.5-5.1); Total Bilirubin 0.6 mg/dL (0.2-1.3); Total Protein 6.1 g/dL (6.3-8.2)
[2018-05-08 17:44] LABS: Appearance,Urine Clear (Clear); Bilirubin,Urine Negative (Negative); Blood,Urine Negative (Negative); Color,Urine Yellow; Glucose,Urine (UA) Negative (Negative); Ketones,Urine Negative (Negative); Leukocyte Esterase,Urine Negative (Negative); Nitrite,Urine Negative (Negative); Protein,Urine Negative (Negative); Specific Gravity,Urine 1.012 (1.001-1.035); Urobilinogen,Urine <2.0 mg/dL (<2.0)
--- NOTE | 2018-05-08 18:10 | XR ---
EXAMINATION TYPE: XR chest 2V DATE OF EXAM: 05/08/2018 COMPARISON: 04/26/2018 HISTORY: Hypotension nausea TECHNIQUE: Frontal and lateral views of the chest are obtained. FINDINGS: There is some airspace consolidation in the posterior right lower lobe. Left lung is clear . There is no heart failure. There are clips at the right axilla. Heart size is normal. There is left axillary pacemaker with the lead tip in the right ventricle. Bony thorax shows slight anterior wedgi ng of 3 mid thoracic vertebra. There is osteopenia. IMPRESSION: Right lower lobe pneumonia not significantly different than last exam. Normal heart.
[2018-05-08] MEDS ORDERED: LEVOFLOXACIN 750 MG TAB PO STA (18:30)
--- NOTE | 2018-05-08 18:32 | ED ---
General Adult HPI - General Chief complaint: Nausea/Vomiting/Diarrhea Stated complaint: Diarrhea Time Seen by Provider: 05/08/18 13:56 Source: patient, EMS Mode of arrival: EMS Limitations: no limitations - History of Present Illness Initial comments: 83-year-old female patient presents to the emergency department today for evaluation after being sent in by her primary care physician for concern for cough and diarrhea. Upon arrival patient dates that she is feeling well and does not know why she is here. States she is not sick. States she has not been vomiting has had no diarrhea. Does report intermittent cough. Denies any fevers or chills. Looking back through her notes and history seems at the beginning of the month patient was treated for urinary tract infection with Bactrim then switched to Augmentin. Patient is also being treated with azithromycin for upper respiratory infection. States that she is able to eat and drink without difficulty. Denies any current hematuria, dysuria, urinary frequency, urinary urgency. Patient denies any recent rash, shortness breath, chest pain, abdominal pain, back pain, numbness, tingling, dizziness, weakness, headache, visual changes, or any other complaints. - Related Data Home Medications Medication Instructions Recorded Confirmed Folic Acid 1 mg PO DAILY 04/23/18 05/08/18 Hydrochlorothiazide [Hydrodiuril] 25 mg PO DAILY 04/23/18 05/08/18 guaiFENesin [Mucinex] 1,200 mg PO BID 04/23/18 05/08/18 Amoxic-Pot Clav 875-125Mg 1 tab PO Q12H 04/26/18 05/08/18 [Augmentin 875-125] Previous Rx's Medication Instructions Recorded Ondansetron Odt [Zofran ODT] 4 mg PO Q8HR PRN #20 tab 04/26/18 Levofloxacin [Levaquin] 750 mg PO DAILY #5 tab 05/08/18 Allergies Allergy/AdvReac Type Severity Reaction Status Date / Time No Known Allergies Allergy Verified 05/08/18 14:11 Review of Systems ROS Statement: Those systems with pertinent positive or pertinent negative responses have been documented in the HPI. ROS Other: All systems not noted in ROS Statement are negative. Past Medical History Past Medical History: Hypertension Additional Past Medical History / Comment(s): sarcoidosis; hypertension, breast cancer with a previous right-sided mastectomy back in the 70s, hypothyroidism History of Any Multi-Drug Resistant Organisms: None Reported Past Surgical History: Appendectomy, Heart Catheterization With Stent Additional Past Surgical History / Comment(s): masectomy right in ; heart cath with stent done in Dec and Mar Past Anesthesia/Blood Transfusion Reactions: No Reported Reaction Date of Last Stent Placement:: 2008 Past Psychological History: No Psychological Hx Reported Smoking Status: Former smoker Past Alcohol Use History: Rare Past Drug Use History: None Reported General Exam Limitations: no limitations General appearance: alert, in no apparent distress, other (This is a well- developed, well-nourished elderly female patient in no acute distress. Vital signs upon presentation are temperature 97.6F, pulse 70, respirations 18, blood pressure 140/76, pulse ox 99% on room air.) Eye exam: Present: normal appearance, PERRL, EOMI. Absent: scleral icterus, conjunctival injection, periorbital swelling ENT exam: Present: normal exam, normal oropharynx, mucous membranes moist Respiratory exam: Present: normal lung sounds bilaterally. Absent: respiratory distress, wheezes, rales, rhonchi, stridor Cardiovascular Exam: Present: regular rate, normal rhythm, normal heart sounds. Absent: systolic murmur, diastolic murmur, rubs, gallop, clicks GI/Abdominal exam: Present: soft, normal bowel sounds. Absent: distended, tenderness, guarding, rebound, rigid Neurological exam: Present: alert, oriented X3, CN II-XII intact Psychiatric exam: Present: normal affect, normal mood Skin exam: Present: warm, dry, intact, normal color. Absent: rash Course Vital Signs 05/08/18 13:47 Temperature 97.6 F Pulse Rate 70 Respiratory 18 Rate Blood Pressure 140/76 O2 Sat by Pulse 99 Oximetry Medical Decision Making - Medical Decision Making 83-year-old female patient presents the emergency department today sent by her primary care physician for evaluation of reported a cough and GI upset. Upon arrival patient reported no symptoms and requested to be discharged home immediately. We did do basic labs and chest x-ray. It does appear to be evidence of a right lower lobe pneumonia which we will treat with Levaquin as she has been on Augmentin and azithromycin at the beginning of this month. She' ll be discharged home in stable condition with normal vital signs to follow-up with her primary care physician for recheck as soon as possible. Return parameters were discussed in detail. She verbalizes understanding and agrees this plan - Lab Data Result diagrams: 05/08/18 15:19 05/08/18 15:19 Lab Results 05/08/18 05/08/18 05/08/18 Range/Units 15:19 15:19 17:23 WBC 7.0 (3.8-10.6) k/uL RBC 4.44 (3.80-5.40) m/uL Hgb 12.9 (11.4-16.0) gm/dL Hct 39.8 (34.0-46.0) % MCV 89.5 (80.0-100.0) fL MCH 29.0 (25.0-35.0) pg MCHC 32.4 (31.0-37.0) g/dL RDW 14.1 (11.5-15.5) % Plt Count 188 (150-450) k/uL Neutrophils % 64 % Lymphocytes % 23 % Monocytes % 5 % Eosinophils % 6 % Basophils % 0 % Neutrophils # 4.5 (1.3-7.7) k/uL Lymphocytes # 1.6 (1.0-4.8) k/uL Monocytes # 0.4 (0-1.0) k/uL Eosinophils # 0.4 (0-0.7) k/uL Basophils # 0.0 (0-0.2) k/uL Sodium 139 (137-145) mmol/L Potassium 4.1 (3.5-5.1) mmol/L Chloride 107 (98-107) mmol/L Carbon Dioxide 25 (22-30) mmol/L Anion Gap 7 mmol/L BUN 18 H (7-17) mg/dL Creatinine 0.97 (0.52-1.04) mg/dL Est GFR (CKD-EPI)AfAm 62 (>60 ml/min/1.73 sqM) Est GFR (CKD-EPI)NonAf 54 (>60 ml/min/1.73 sqM) Glucose 93 (74-99) mg/dL Calcium 9.3 (8.4-10.2) mg/dL Total Bilirubin 0.6 (0.2-1.3) mg/dL AST 36 (14-36) U/L ALT 39 (9-52) U/L Alkaline Phosphatase 102 (38-126) U/L Total Protein 6.1 L (6.3-8.2) g/dL Albumin 3.2 L (3.5-5.0) g/dL Amylase 56 (30-110) U/L Lipase 115 (23-300) U/L Urine Color Yellow Urine Appearance Clear (Clear) Urine pH 7.0 (5.0-8.0) Ur Specific [place] 1.012 (1.001-1.035) Urine Protein Negative (Negative) Urine Glucose (UA) Negative (Negative) Urine Ketones Negative (Negative) Urine Blood Negative (Negative) Urine Nitrite Negative (Negative) Urine Bilirubin Negative (Negative) Urine Urobilinogen <2.0 (<2.0) mg/dL Ur Leukocyte Esterase Negative (Negative) - Radiology Data Radiology results: report reviewed, image reviewed Two-view x-ray of the chest is obtained. Report was reviewed in its entirety. Impression by Dr. Zamora shows right lower lobe pneumonia not significant joint different than last exam. Normal heart. Disposition Clinical Impression: Pneumonia Disposition: HOME SELF-CARE Condition: Good Instructions: Pneumonia (ED) Additional Instructions: Complete antibiotic prescription and full. Follow-up through primary care physician for recheck in 1-2 days. Return immediately for any new, worsening, or concerning symptoms. Prescriptions: Levofloxacin [Levaquin] 750 mg PO DAILY #5 tab Is patient prescribed a controlled substance at d/c from ED?: No Referrals: Laazro Nowak MD [Primary Care Provider] - 1-2 days Time of Disposition: 18:32
[2018-05-08 19:09] VITALS: BP 134/93; PULSE 84; RESP 16; TEMP 97
== END 2018-05-08 19:25 | disposition home or self-care (01) ==
LOC: EC 13:44
DX: J18.9 Pneumonia, unspecified organism (principal); I10 Essential (primary) hypertension; Z85.3 Personal history of malignant neoplasm of breast; Z87.891 Personal history of nicotine dependence; Z79.899 Other long term (current) drug therapy; Z95.5 Presence of coronary angioplasty implant and graft
CPT/HCPCS: 36415; 71046; 80053; 81003; 82150; 83690; 85025; 96360; 99284